=== PATIENT | male | born 1935 | race Hispanic/Latino ===

== ENCOUNTER 2017-03-30 09:30 | Emergency (ER) | payer BC, MEDICARE ==
[2017-03-30 09:38] VITALS: BP 115/67; PULSE 84; RESP 20; TEMP 98.8; O2SAT 98
--- NOTE | 2017-03-30 10:04 | ED PDOC ---
HPI: Back Time Seen by Provider: 03/30/17 09:40 Chief Complaint (Nursing): Male Genitourinary Chief Complaint (Provider): back pain History Per: Patient History/Exam Limitations: no limitations Onset/Duration Of Symptoms: Days (x 21) Additional Complaint(s): Uli Villanueva is an 81 year old male, with a previous medical history of COPD and lung cancer, who presents to the ED with complaints of lower back pain ongoing for 3 weeks after pulling heavy furniture. Patient denies any numbness, tingling or weakness. Patient also reports to developing urinary frequency 2 days ago but denies any fever or abdominal pain. PMD: none provided Past Medical History Reviewed: Historical Data, Nursing Documentation, Vital Signs Vital Signs: Last Vital Signs Temp 98.8 F 03/30/17 09:37 Pulse 84 03/30/17 09:37 Resp 20 03/30/17 09:37 BP 115/67 03/30/17 09:37 Pulse Ox 98 03/30/17 09:37 - Medical History PMH: Anxiety, Bronchitis, COPD, Emphysema, HTN Denies: HIV, Chronic Kidney Disease - Surgical History Surgical History: No Surg Hx - Family History Family History: States: Unknown Family Hx - Home Medications Home Medications: Ambulatory Orders Medication Instructions Recorded Albuterol HFA [Ventolin HFA 90 2 puff IH [id number] #1 puff 07/14/14 mcg/actuation (8 g)] Albuterol/Ipratropium [Duoneb 3 3 ml IH TID #0 neb 07/14/14 mg/0.5 mg (3 ml) UD] Diazepam [Valium] 2 mg PO DAILY PRN #0 tab 07/14/14 Omeprazole [Prilosec] 1 tab PO DAILY #0 ecc 07/14/14 Sulfamethoxazole/Trimethoprim 1 tab PO QOTHERDAY #0 tab 07/14/14 [Bactrim 400-80 mg Tablet] Tamsulosin [Flomax] 1 tab-cap PO DAILY #0 cap 07/14/14 Venlafaxine Hydrochloride 25 mg PO DAILY #0 tab 07/14/14 Ciprofloxacin HCl [Cipro] 500 mg PO BID #20 tab 03/30/17 traMADol [Ultram] 50 mg PO Q8 #10 tab 03/30/17 - Allergies Allergies/Adverse Reactions: Allergies Allergy/AdvReac Type Severity Reaction Status Date / Time No Known Allergies Allergy Verified 07/13/14 04:11 Review of Systems ROS Statement: Except As Marked, All Systems Reviewed And Found Negative Gastrointestinal: Negative for: Abdominal Pain Genitourinary Male: Positive for: Frequency. Negative for: Dysuria, Incontinence Musculoskeletal: Positive for: Back Pain Neurological: Negative for: Weakness, Numbness, Other (tingling) Physical Exam - Reviewed Nursing Documentation Reviewed: Yes Vital Signs Reviewed: Yes - Physical Exam Appears: Positive for: Well, Non-toxic, No Acute Distress Head Exam: Positive for: ATRAUMATIC, NORMAL INSPECTION, NORMOCEPHALIC Skin: Positive for: Normal Color, Warm, Dry Eye Exam: Positive for: Normal appearance ENT: Positive for: Normal ENT Inspection Cardiovascular/Chest: Positive for: Regular Rate, Rhythm Respiratory: Positive for: Decreased Breath Sounds (bilaterally ) Gastrointestinal/Abdominal: Positive for: Bowel Sounds, Soft, Distended ( suprapubic ). Negative for: Tenderness Back: Positive for: Other (left lumbar paraspinal tenderness ). Negative for: L CVA Tenderness, R CVA Tenderness, Vertebral Tenderness Neurologic/Psych: Positive for: Alert, Oriented - Laboratory Results Result Diagrams: 03/30/17 10:16 03/30/17 10:16 - ECG O2 Sat by Pulse Oximetry: 98 (RA) Pulse Ox Interpretation: Normal Medical Decision Making Medical Decision Making: Initial Plan: * labs * urine dipstick * urine culture * x-ray lumbar spine * reevaluation Bladder scan pre-void indicated 258 ml ----- Scribe Attestation: Documented by Paris Snyder acting as a scribe for Quinten Stein MD. Scribe Attestation: All medical record entries made by the Scribe were at my direction and personally dictated by me. I have reviewed the chart and agree that the record accurately reflects my personal performance of the history, physical exam, medical decision making, and the department course for this patient. I have also personally directed, reviewed, and agree with the discharge instructions and disposition. Disposition - Clinical Impression Clinical Impression: Back strain, UTI (urinary tract infection) - Patient ED Disposition Is Patient to be Admitted: No Counseled Patient/Family Regarding: Studies Performed, Diagnosis, Need For Followup, Rx Given - Disposition Referrals: Walter Mcdermott MD [Family Provider] - Disposition: Routine/Home Disposition Time: 12:28 Condition: FAIR Prescriptions: Ciprofloxacin HCl [Cipro] 500 mg PO BID #20 tab traMADol [Ultram] 50 mg PO Q8 #10 tab Instructions: Back Pain (ED), Urinary Tract Infection in Men (ED) Forms: [facility] (American)
[2017-03-30 10:23] LABS: BASO # 0.1 K/uL (0.0-0.2); BASO % 0.8 % (0.0-2.0); EOS # 0.1 K/uL (0.0-0.7); EOS % 1.3 % (0.0-4.0); HEMATOCRIT 45.1 % (35.0-51.0); LYMPH # 0.9 K/uL (1.0-4.3); LYMPH % 13.5 % (20.0-40.0); MEAN CELL VOLUME 96.6 fl (80.0-94.0); MEAN CORPUSCULAR HEMOGLOBIN 32.4 pg (27.0-31.0); MEAN CORPUSCULAR HGB CONC 33.5 g/dL (33.0-37.0); MEAN PLATELET VOLUME 6.6 fl (7.2-11.7); MONO # 0.4 K/uL (0.0-0.8); MONO % 6.6 % (0.0-10.0); NEUT # 5.1 K/uL (1.8-7.0); NEUT % 77.8 % (50.0-75.0); NRBC % 0.1 % (0.0-0.0); RED CELL DISTRIBUTION WIDTH 14.6 % (11.5-14.5); WHITE BLOOD COUNT 6.5 K/uL (4.8-10.8)
[2017-03-30 10:29] LABS: ALB/GLOB RATIO 1.5 (1.0-2.1); ALKALINE PHOSPHATASE 98 U/L (38-126); ALT/SGPT 34 U/L (21-72); AST/SGOT 23 U/L (17-59); BILIRUBIN,TOTAL 0.8 mg/dl (0.2-1.3); BLOOD UREA NITROGEN 15 mg/dl (9-20); CALCIUM 9.5 mg/dL (8.4-10.2); CARBON DIOXIDE 27 mmol/L (22-30); CHLORIDE 102 mmol/L (98-107); GFR AFRICAN-AMERICAN > 60; GLUCOSE,RANDOM 87 mg/dL (75-110); POTASSIUM 4.5 MMOL/L (3.6-5.0); SODIUM 144 mmol/l (132-148); TOTAL PROTEIN 7.5 G/DL (6.3-8.2)
--- NOTE | 2017-03-30 15:02 | RAD ---
PROCEDURE: Radiographs of the Lumbar Spine. HISTORY: trauma r/o fx COMPARISON: No prior. FINDINGS: BONES: Loss of height L4 vertebral body likely chronic. Wedge deformity T12. DISC SPACES: Unremarkable. OTHER FINDINGS: Calcified nonaneurysmal abdominal aorta. IMPRESSION: Fractures of T12 and L4. L4 fractures likely old. Indeterminate age of the T12 fracture. Please note: No preliminary report/ innterpretation of this examination provided by emergency department personnel.
== END 2017-03-30 12:41 | disposition home or self-care (01) ==
LOC: H.ER 09:30
DX: N39.0 Urinary tract infection, site not specified (principal); M54.9 Dorsalgia, unspecified; J44.9 Chronic obstructive pulmonary disease, unspecified; F41.9 Anxiety disorder, unspecified; I10 Essential (primary) hypertension; Z85.118 Personal history of other malignant neoplasm of bronchus and lung

== ENCOUNTER 2017-08-15 10:07 | Inpatient (IN) | payer BC, MEDICARE ==
[2017-08-15 10:07] VITALS: BMI 22.4
[2017-08-15] MEDS ORDERED: Albuterol-Ipratrop 3 mg / 0.5 (3 ml) UD INH STA ×2 (10:29→12:21)
[2017-08-15] MEDS ORDERED: Azithromycin 500 MG in Sodium Chloride 0.9% 250 ML IV STA (10:30)
--- NOTE | 2017-08-15 11:01 | RAD ---
HISTORY: Sepsis Patient COMPARISON: Comparison chest dated 11/05/2015. FINDINGS: Re- demonstrated is in situ right-sided MediPort with tip in the SVC. LUNGS: Note that this examination is somewhat limited due to partial obscuration of the right lung apex by overlying facial soft tissue and mandible artifact. Re- demonstrated is opacification right upper lung field with volume loss. There also appears to be some base mild atelectasis right lung base tenting of the and tenting of the right hemidiaphragm. Mild compensatory hyperinflation left lung PLEURA: No significant pleural effusion identified, no pneumothorax apparent. CARDIOVASCULAR: Apparent mild shift of the mediastinum from right to left OSSEOUS STRUCTURES: No significant abnormalities. VISUALIZED UPPER ABDOMEN: Normal. OTHER FINDINGS: None. IMPRESSION: This examination is somewhat limited due to partial obscuration of the right lung apex by overlying facial soft tissue and mandible artifact. Re- demonstrated is opacification right upper lung field with volume loss. There also appears to be some base mild atelectasis right lung base tenting of the and tenting of the right hemidiaphragm. Mild compensatory hyperinflation left lung
[2017-08-15] MEDS ORDERED: cefTRIAXone (Rocephin) 1 gm Inj ONE (11:05)
[2017-08-15] MEDS ORDERED: Albuterol-Ipratrop 3 mg / 0.5 (3 ml) UD ONE ×2 (11:06→12:24)
--- NOTE | 2017-08-15 11:14 | ED PDOC ---
HPI: SOB/CHF/COPD Time Seen by Provider: 08/15/17 10:28 Chief Complaint (Nursing): Shortness Of Breath Chief Complaint (Provider): SOB History Per: Patient, Family Additional Complaint(s): states pt has been getting progressively short of breath X 4 months, no fever, no CP, no cough, O2 sats in 70s after exertion today. Pt finished course of Cipro and presently on day 5 of Levaquin. Pt has h/o lung CA in 2011 , treated with chemo and radiation, now in remission. Pt reports improvement in sxs after nebulizer treatment via EMS. Past Medical History Reviewed: Nursing Documentation, Vital Signs Vital Signs: Last Vital Signs Temp 98.3 F 08/15/17 10:10 Pulse 138 H 08/15/17 14:43 Resp 34 H 08/15/17 11:30 BP 98/76 L 08/15/17 11:30 Pulse Ox 100 08/15/17 13:40 - Medical History PMH: Anxiety, Bronchitis, COPD, Emphysema, HTN, Malignancy Denies: HIV, Chronic Kidney Disease - Family History Family History: States: Unknown Family Hx - Living Arrangements Living Arrangements: With Family - Social History Ex-Smoker (has not smoked in the last 12 months): Yes Alcohol: None - Home Medications Home Medications: Ambulatory Orders Medication Instructions Recorded Budesonide [Pulmicort Respules] 2 ml IH Q12H 08/15/17 Fluticasone/Salmeterol 250/50 1 puff IH Q12H 08/15/17 [Advair Diskus 250/50] Levalbuterol [Xopenex] 3 ml IH Q8H 08/15/17 Pantoprazole Sodium [Protonix] 40 mg PO DAILY 08/15/17 Sulfamethoxazole/Trimethoprim 1 tab PO MWF 08/15/17 [Bactrim DS Tab] Tamsulosin [Flomax] 0.8 mg PO HS 08/15/17 Tiotropium [Spiriva] 18 mcg IH DAILY 08/15/17 Vitamin B Complex [Super B-50 1 cap PO DAILY 08/15/17 Complex] levoFLOXacin [Levaquin] 500 mg PO DAILY 08/15/17 predniSONE [predniSONE Tab] 10 mg PO BID 08/15/17 - Allergies Allergies/Adverse Reactions: Allergies Allergy/AdvReac Type Severity Reaction Status Date / Time No Known Allergies Allergy Verified 05/11/17 12:09 Review of Systems Constitutional: Negative for: Fever, Chills Cardiovascular: Negative for: Chest Pain, Palpitations Respiratory: Positive for: Cough, Shortness of Breath, SOB with Exertion. Negative for: Sputum Gastrointestinal: Negative for: Nausea, Vomiting, Abdominal Pain, Diarrhea Genitourinary Male: Negative for: Dysuria, Hematuria Musculoskeletal: Negative for: Back Pain Skin: Negative for: Rash, Lesions Neurological: Negative for: Weakness, Numbness, Headache, Dizziness Physical Exam - Reviewed Nursing Documentation Reviewed: Yes Vital Signs Reviewed: Yes - Physical Exam Appears: Positive for: In Acute Distress (Speaking full sentences) Head Exam: Positive for: ATRAUMATIC, NORMAL INSPECTION Skin: Positive for: Normal Color, Warm, Dry Eye Exam: Positive for: Normal appearance, EOMI, PERRL Cardiovascular/Chest: Positive for: Regular Rate, Rhythm Respiratory: Positive for: Accessory Muscle Use, Crackles, Rales, Wheezing, Respiratory Distress Gastrointestinal/Abdominal: Positive for: Normal Exam Extremity: Positive for: Normal ROM Neurologic/Psych: Positive for: Alert, heating engineer II-XII, Oriented. Negative for: Motor/Sensory Deficits - Laboratory Results Result Diagrams: 08/15/17 10:50 08/15/17 10:50 - ECG O2 Sat by Pulse Oximetry: 100 - Critical Care Total Time (In Min): 90 Medical Decision Making Medical Decision Makin yo male with SOB. - labs - EKG - CXR - Duonebs - Solumedrol - Rocephin - Zithromax As per spouse, pt under care of Dr. Lomax and previously Dr. Blunt, requests admission under Dr. Lomax's service. Time: 10:59 Chest X-Ray FINDINGS: Re- demonstrated is in situ right-sided MediPort with tip in the SVC. LUNGS: Note that this examination is somewhat limited due to partial obscuration of the right lung apex by overlying facial soft tissue and mandible artifact. Re- demonstrated is opacification right upper lung field with volume loss. There also appears to be some base mild atelectasis right lung base tenting of the and tenting of the right hemidiaphragm. Mild compensatory hyperinflation left lung PLEURA: No significant pleural effusion identified, no pneumothorax apparent. CARDIOVASCULAR: Apparent mild shift of the mediastinum from right to left OSSEOUS STRUCTURES: No significant abnormalities. VISUALIZED UPPER ABDOMEN: Normal. OTHER FINDINGS: None. IMPRESSION: This examination is somewhat limited due to partial obscuration of the right lung apex by overlying facial soft tissue and mandible artifact. Re- demonstrated is opacification right upper lung field with volume loss. There also appears to be some base mild atelectasis right lung base tenting of the and tenting of the right hemidiaphragm. Mild compensatory hyperinflation left lung 12:55 Repeat EKG secondary to tachycardia and irregular rhythm on monitor. EKG: A fib @ 152, ST depressions inferiorly. Case discussed with Dr. Guadarrama and EKG reviewed, ST depressions, does not meet criteria for Code Heart. BiPAP ordered. 13:40 Pt improving, feels better. 15:10 Pt remains tachycardic, BP 94 systolic, IVF continued, Digoxin 0.125 mg ordered. Disposition - Clinical Impression Clinical Impression: COPD exacerbation, Respiratory distress, New onset a-fib - Patient ED Disposition Is Patient to be Admitted: Yes - Disposition Disposition Time: 12:25 Condition: GUARDED - Pt Status Changed To: Hospital Disposition Of: Inpatient - Admit Certification Admit to Inpatient:: After my assessment, the patient will require hospitalization for at least two midnights. This is because of the severity of symptoms shown, intensity of services needed, and/or the medical risk in this patient being treated as an outpatient. - POA Present On Arrival: None
[2017-08-15 11:16] LABS: BASO % 0.2 % (0.0-2.0); EOS % 0.3 % (0.0-4.0); HEMOGLOBIN 13.5 g/dL (12.0-18.0); LYMPH # 1.3 K/uL (1.0-4.3); LYMPH % 18.4 % (20.0-40.0); MEAN CELL VOLUME 96.9 fl (80.0-94.0); MEAN CORPUSCULAR HGB CONC 33.1 g/dL (33.0-37.0); MEAN PLATELET VOLUME 6.9 fl (7.2-11.7); MONO # 0.5 K/uL (0.0-0.8); MONO % 6.6 % (0.0-10.0); NEUT # 5.4 K/uL (1.8-7.0); NEUT % 74.5 % (50.0-75.0); NRBC % 0.1 % (0.0-0.0); RBC 4.21 Mil/uL (4.40-5.90); RED CELL DISTRIBUTION WIDTH 15.4 % (11.5-14.5); WHITE BLOOD COUNT 7.3 K/uL (4.8-10.8)
[2017-08-15 11:21] LABS: ABG ALLEN TEST YES; ARTERIAL BLOOD GAS HCO3 28.1 mmol/L (21-28); ARTERIAL BLOOD GAS O2 SAT 100.4 % (95-98); ARTERIAL BLOOD GAS PCO2 45 mm/Hg (35-45); ARTERIAL BLOOD GAS PH 7.42 (7.35-7.45); ARTERIAL BLOOD GAS PO2 136 mm/Hg (80-100); ARTERIAL BLOOD GAS TCO2 30.6 mmol/L (22-28)
[2017-08-15 11:24] LABS: INR 1.1 (0.9-1.2); PARTIAL THROMBOPLASTIN TIME 34.7 Seconds (25.6-37.1); PROTHROMBIN TIME 11.8 Seconds (9.8-13.1)
[2017-08-15 11:31] LABS: B-TYPE NATRIURETIC PEPTIDE 2760 pg/ml (0-900)
[2017-08-15 11:35] LABS: ALB/GLOB RATIO 1.1 (1.0-2.1); ALBUMIN 3.4 g/dL (3.5-5.0); ALT/SGPT 29 U/L (21-72); AST/SGOT 48 U/L (17-59); BLOOD UREA NITROGEN 20 mg/dl (9-20); CALCIUM 8.8 mg/dL (8.4-10.2); GFR AFRICAN-AMERICAN > 60; GFR NON-AFRICAN AMERICAN > 60; MAGNESIUM 1.9 MG/DL (1.6-2.3)
[2017-08-15] MEDS ORDERED: Sodium Chloride 0.9% 1,000 ML IV STA ×2 (12:21→13:39)
--- NOTE | 2017-08-15 13:19 | CARD ---
APPROVED REPORT EKG Measurement Heart [id number] <Conclusion> Sinus tachycardia with premature atrial complexes Otherwise normal ECG
[2017-08-15] MEDS ORDERED: Budesonide 0.5 mg/2 ml Inhal Susp UD IH SCH (13:45)
[2017-08-15] MEDS ORDERED: Levalbuterol 0.63 MG/3 ML Inhal Soln UD IH SCH (13:45)
[2017-08-15] MEDS ORDERED: Fluticasone-Salmeterol 250-50mcg Diskus IH SCH (13:45)
[2017-08-15] MEDS ORDERED: Enoxaparin 40 mg Syringe SC STA (13:52)
[2017-08-15] MEDS ORDERED: Azithromycin 500 MG in Sodium Chloride 0.9% 250 ML IVPB SCH (14:00)
[2017-08-15] MEDS ORDERED: Digoxin 500 mcg/2ml (0.5 mg/2ml) Inj IVP STA (15:14)
--- NOTE | 2017-08-15 15:46 | CP.PCM.HP ---
History of Present Illness - History of Present Illness History of Present Illness: 82 yo male with history of COPD and Lung Cancer brought by roommate because of SOB associated with wheezing and loss of appetite since 2 weeks ago. Recently diagnosed with flu and URI 3 weeks ago and was put on Cipro and Levaquin. According to his roommate his condition deteriorated after that. Present on Admission - Present on Admission Any Indicators Present on Admission: No History of DVT/PE: No History of Uncontrolled Diabetes: No Urinary Catheter: No Decubitus Ulcer Present: No Review of Systems - Review of Systems All systems: reviewed and no additional remarkable complaints except (aside from those mentioned above, 12 point system review were negative by me) Past Patient History - Infectious Disease Hx of Infectious Diseases: None - Tetanus Immunizations Tetanus Immunization: Unknown - Past Medical History & Family History Past Medical History?: Yes - Past Social History Smoking Status: Former Smoker Alcohol: None Drugs: Denies Home Situation {Lives}: Roommate (0) - CARDIAC Hx Hypertension: Yes - PULMONARY Hx Bronchitis: Yes Hx Chronic Obstructive Pulmonary Disease (COPD): Yes Hx Emphysema: Yes - NEUROLOGICAL Hx Neurological Disorder: No - HEENT Hx HEENT Problems: No - RENAL Hx Chronic Kidney Disease: No - ENDOCRINE/METABOLIC Hx Endocrine Disorders: No - HEMATOLOGICAL/ONCOLOGICAL Hx Blood Disorders: No Hx Human Immunodeficiency Virus (HIV): No - INTEGUMENTARY Hx Dermatological Problems: No - MUSCULOSKELETAL/RHEUMATOLOGICAL Hx Musculoskeletal Disorders: No Hx Falls: No - GASTROINTESTINAL Hx Gastrointestinal Disorders: No - GENITOURINARY/GYNECOLOGICAL Hx Genitourinary Disorders: No - PSYCHIATRIC Hx Anxiety: Yes - SURGICAL HISTORY Hx Surgeries: No - ANESTHESIA Hx Anesthesia: No Meds Allergies/Adverse Reactions: Allergies Allergy/AdvReac Type Severity Reaction Status Date / Time No Known Allergies Allergy Verified 05/11/17 12:09 Physical Exam - Constitutional Appears: No Acute Distress, Chronically Ill - Head Exam Head Exam: ATRAUMATIC - Eye Exam Eye Exam: absent: Scleral icterus - ENT Exam ENT Exam: Mucous Membranes Moist - Neck Exam Neck exam: Negative for: Meningismus - Respiratory Exam Respiratory Exam: Rhonchi, Wheezes - Cardiovascular Exam Cardiovascular Exam: Tachycardia, Irregular Rhythm - GI/Abdominal Exam GI & Abdominal Exam: Soft. absent: Tenderness - Rectal Exam Rectal Exam: Deferred - Extremities Exam Extremities exam: Negative for: pedal edema - Back Exam Back exam: absent: tenderness - Neurological Exam Neurological exam: Alert, Oriented x3 - Psychiatric Exam Psychiatric exam: Normal Affect - Skin Skin Exam: Dry, Intact Results - Vital Signs Recent Vital Signs: Last Vital Signs Temp 98.3 F 08/15/17 10:10 Pulse 138 H 08/15/17 14:43 Resp 34 H 08/15/17 11:30 BP 98/76 L 08/15/17 11:30 Pulse Ox 100 08/15/17 13:40 - Labs Result Diagrams: 08/15/17 10:50 08/15/17 10:50 Labs: Laboratory Results - last 24 hr 08/15/17 08/15/17 08/15/17 10:50 10:50 10:50 WBC 7.3 RBC 4.21 L Hgb 13.5 Hct 40.8 MCV 96.9 H MCH 32.0 H MCHC 33.1 RDW 15.4 H Plt Count 202 MPV 6.9 L Neut % (Auto) 74.5 Lymph % (Auto) 18.4 L Burnet % (Auto) 6.6 Eos % (Auto) 0.3 Baso % (Auto) 0.2 Neut # (Auto) 5.4 Lymph # (Auto) 1.3 Burnet # (Auto) 0.5 Eos # (Auto) 0.0 Baso # (Auto) 0.0 PT 11.8 INR 1.1 APTT 34.7 pCO2 pO2 HCO3 ABG pH ABG Total CO2 ABG O2 Saturation ABG Base Excess Fei Test ABG Potassium A-a O2 Difference Glucose Lactate FiO2 Sodium 140 Potassium 3.9 Chloride 100 Carbon Dioxide 31 H Anion Gap 13 BUN 20 Creatinine 0.7 L Est GFR ( Amer) > 60 Est GFR (Non-Af Amer) > 60 Random Glucose 84 Calcium 8.8 Phosphorus 2.8 Magnesium 1.9 Total Bilirubin 0.7 AST 48 ALT 29 Alkaline Phosphatase 83 Troponin I 0.0230 NT-Pro-B Natriuret Pep 2760 H Total Protein 6.4 Albumin 3.4 L D Globulin 3.0 Albumin/Globulin Ratio 1.1 Arterial Blood Potassium Influenza Typ A,B (EIA) 08/15/17 08/15/17 11:16 13:10 WBC RBC Hgb Hct MCV MCH MCHC RDW Plt Count MPV Neut % (Auto) Lymph % (Auto) Burnet % (Auto) Eos % (Auto) Baso % (Auto) Neut # (Auto) Lymph # (Auto) Burnet # (Auto) Eos # (Auto) Baso # (Auto) PT INR APTT pCO2 45 pO2 136 H HCO3 28.1 H ABG pH 7.42 ABG Total CO2 30.6 H ABG O2 Saturation 100.4 H ABG Base Excess 4.0 H Fei Test Yes ABG Potassium 3.3 L A-a O2 Difference 93.0 Glucose 96 Lactate 1.2 FiO2 40.0 Sodium 137.0 Potassium Chloride 101.0 Carbon Dioxide Anion Gap BUN Creatinine Est GFR ( Amer) Est GFR (Non-Af Amer) Random Glucose Calcium Phosphorus Magnesium Total Bilirubin AST ALT Alkaline Phosphatase Troponin I NT-Pro-B Natriuret Pep Total Protein Albumin Globulin Albumin/Globulin Ratio Arterial Blood Potassium 3.3 L Influenza Typ A,B (EIA) Negative for flu a/b Assessment & Plan - Assessment and Plan (Free Text) Assessment: 82 yo male with history of COPD and Lung Cancer brought by roommate because of SOB associated with wheezing and loss of appetite since 2 weeks ago. Recently diagnosed with flu and URI 3 weeks ago and was put on Cipro and Levaquin. According to his roommate his condition deteriorated after that. 1. COPD Exacerbation continue SoluMedrol 60mg IV q 8hrs Duoneb via nebulizer q hrs prn for wheezing Spiriva 18mcg inhalation Advair 2 puffs q 12hrs continue Rocephin and Azithromycin pulmonology consult with Dr Lomax 2. Lung Cancer on remission
[2017-08-15] MEDS ORDERED: Albuterol-Ipratrop 3 mg / 0.5 (3 ml) UD INH PRN (17:39)
[2017-08-15] MEDS ORDERED: methylPREDNISolone 60 MG in Sodium Chloride 0.9% 50 ML IV SCH (17:45)
[2017-08-15] MEDS: Ipratropium 0.02% Inhal Soln (0.5 mg/2.5 ml) UD IH SCH (19:15)
[2017-08-15] MEDS: Levalbuterol 0.63 MG/3 ML Inhal Soln UD IH SCH (19:16)
--- NOTE | 2017-08-16 05:03 | CON ---
CRITICAL CARE CONSULTATION DATE: 08/15/2017 The patient in ICU bed, 425. Time spent 45 minutes. The patient is seen and evaluated at the bedside. Past medical, surgical and social history reviewed. HISTORY OF PRESENT ILLNESS: An 82-year-old male with chronic obstructive pulmonary disease/emphysema, lung cancer, status post chemo and radiation treatment, has been in his usual state of health until about 3 weeks ago when the patient developed flu and noted to be short of breath. The patient was seen by PMD/manager adult, treated with Cipro and steroid. The patient improved and at the end of the treatment, the patient again became more short of breath, was given levofloxacin, increased the dose of steroids, but became refractory to treatment, getting more short of breath, and came to emergency room. In ER, the patient's vital signs showed temperature 98.3, heart rate of 138, respiratory rate 34, blood pressure 98/76, and pulse oximetry 100%. The patient subsequently admitted to the floor. MEDICATIONS: His medications at home include Advair 250/50 one puff twice daily, Pulmicort Respules 2 mL q. 12 hours, levalbuterol 3 mL q. 8 hours, Protonix 40 daily, Bactrim DS 1 tablet three times a week, Flomax 0.8 mg at bedtime, ipratropium bromide 18 mcg daily, vitamin B complex, and prednisone 10 mg. ALLERGIES: NONE DOCUMENTED. FAMILY HISTORY: Noncontributory. SOCIAL HISTORY: Reformed smoker. PHYSICAL EXAMINATION: GENERAL: Elderly male oriented to name, place, and time, on BiPAP. No distress noted. VITAL SIGNS: Temperature 97.1, heart rate of 93, blood pressure of 111/64, and mean arterial pressure 79. Intake and output to be documented. Weight 125 pounds. HEAD, EYES, EARS, NOSE AND THROAT: Pupils reactive. Conjunctivae pale. Sclerae white. NECK: Supple, [id number] hunchback. CHEST: Bilateral breath sounds diminished in intensity. Expiration prolonged. HEART: Rhythm regular. S1 and S2 normal intensity. No S3, S4, or gallop. No audible murmur. ABDOMEN: Bowel sounds are present. EXTREMITIES: No edema. DP palpable. NEUROLOGIC: Nonfocal. LABORATORY DATA: EKG shows atrial fibrillation with nonspecific ST-T changes. Chest x-ray, hyperinflated left lung, hazy opacity involving right upper lobe with trachea shifted to right. IMPRESSION AND PLAN: An 82-year-old male reformed smoker with chronic obstructive pulmonary disease, emphysema with history of carcinoma of right lung, status post chemotherapy and radiation treatment, admitted with chronic obstructive pulmonary disease exacerbation, post-influenza bronchitis, treated with Cipro and levofloxacin, currently on Rocephin and Zithromax. Continue short course systemic steroid, bronchodilator q. 6 hours p.r.n., continue bilevel positive airway pressure. No electrolyte abnormalities noted. ProBNP 2716. Continue deep venous thrombosis and gastrointestinal prophylaxis. History of prostate hypertrophy, on Flomax 0.8 mg daily. Musa Whitney MD
[2017-08-16 05:43] LABS: BLOOD UREA NITROGEN 25 mg/dl (9-20); CALCIUM 8.3 mg/dL (8.4-10.2); GFR AFRICAN-AMERICAN > 60; GFR NON-AFRICAN AMERICAN > 60
[2017-08-16 05:54] LABS: HEMOGLOBIN 12.9 g/dL (12.0-18.0); LYMPH # 0.1 K/uL (1.0-4.3); LYMPH % 2.1 % (20.0-40.0); MEAN CELL VOLUME 96.4 fl (80.0-94.0); MEAN CORPUSCULAR HEMOGLOBIN 31.9 pg (27.0-31.0); MEAN CORPUSCULAR HGB CONC 33.1 g/dL (33.0-37.0); MONO # 0.2 K/uL (0.0-0.8); MONO % 2.3 % (0.0-10.0); NEUT # 6.6 K/uL (1.8-7.0); NEUT % 95.6 % (50.0-75.0); PLATELET COUNT 212 K/uL (130-400); RBC 4.04 Mil/uL (4.40-5.90); RED CELL DISTRIBUTION WIDTH 15.1 % (11.5-14.5); WHITE BLOOD COUNT 6.9 K/uL (4.8-10.8)
[2017-08-16] MEDS: Enoxaparin 40 mg Syringe SC SCH (08:29)
[2017-08-16] MEDS: Pantoprazole 40 mg EC Tab PO SCH (08:32)
[2017-08-16] MEDS: Azithromycin 500 MG in Sodium Chloride 0.9% 250 ML IVPB SCH (08:33)
[2017-08-16] MEDS: Multivitamin With Minerals Tab PO SCH (08:34)
[2017-08-16] MEDS ORDERED: MethylPREDNISolone 40 mg Vial IVP SCH (08:45)
--- NOTE | 2017-08-16 08:47 | CP.PCM.CON ---
History of Present Illness - History of Present Illness History of Present Illness: This 82-year-old white male who has history of COPD presented to the emergency department with approximately 3-4 weeks of worsening shortness of breath. He has been treated for exacerbation of chronic bronchitis with quinolones in the past and has been given oral steroids as well as his usual inhalation medications. Symptomatology has waxed and waned but has recently become more severe. He was unaware fever but did have chills. He denied chest pain. There was no hemoptysis. His cough was productive of a large amount of mostly mucoid sputum. He continues to use levalbuterol and budesonide via nebulizer at home but also carries a rescue inhaler she uses when needed. He does have O2 via nasal cannula for home use as well. When seen in the emergency department his chest x-ray showed no new infiltrates but has significant changes in the right hemithorax due to a prior diagnosis of carcinoma which was treated with radiation therapy as well as chemotherapy. Past medical history: Stage III non-small cell lung cancer of the right lung, pneumonia, chronic obstructive pulmonary disease, hypertension, coronary artery disease, hepatitis , urinary tract infections, BPH with lower urinary tract symptoms, hepatitis, cataracts. There is no history of diabetes, peptic ulcer disease, renal disease or bleeding disorder. No history of seizure disorder. Allergies: No known drug allergies. Social history: Former heavy cigarette smoker discontinued his habit 10 years ago. He smoked for more than 50 years. Heavy alcoholic intake in the past, discontinued in 1977. Denies illicit drug use. Review of Systems - Review of Systems All systems: reviewed and no additional remarkable complaints except - Constitutional Constitutional: Chills, Fatigue, Weakness - EENT Eyes: Blurred Vision Ears: Decreased Hearing Nose/Mouth/Throat: Dry Mouth, Hoarsness - Cardiovascular Cardiovascular: Rapid Heart Rate - Respiratory Respiratory: Cough, Dyspnea, Wheezing, Excessive Mucous Production - Musculoskeletal Musculoskeletal: Back Pain - Psychiatric Psychiatric: Anxiety, Change in Appetite - Hematologic/Lymphatic Hematologic: Easy Bruising Past Patient History - Infectious Disease Hx of Infectious Diseases: None - Tetanus Immunizations Tetanus Immunization: Unknown - Past Medical History & Family History Past Medical History?: Yes - Past Social History Smoking Status: Former Smoker (Smoked heavily until about 10 years ago) Chewing Tobacco Use: No Cigar Use: No Alcohol: None (Heavy alcohol intake until 1977) Drugs: Denies Home Situation {Lives}: With Family - CARDIAC Hx Hypertension: Yes - PULMONARY Hx Bronchitis: Yes Hx Chronic Obstructive Pulmonary Disease (COPD): Yes Hx Emphysema: Yes Hx Pneumonia: Yes - NEUROLOGICAL Hx Neurological Disorder: No - HEENT Hx Cataracts: Yes Hx Deafness: Yes - RENAL Hx Chronic Kidney Disease: No - ENDOCRINE/METABOLIC Hx Endocrine Disorders: No - HEMATOLOGICAL/ONCOLOGICAL Hx Cancer: Yes (Right lung) Hx Hepatitis B: Yes Hx Human Immunodeficiency Virus (HIV): No - INTEGUMENTARY Hx Dermatological Problems: No - MUSCULOSKELETAL/RHEUMATOLOGICAL Hx Back Pain: Yes Hx Falls: Yes - GASTROINTESTINAL Hx Gastrointestinal Disorders: No - GENITOURINARY/GYNECOLOGICAL Hx Prostate Problems: Yes Hx Urinary Tract Infection: Yes - PSYCHIATRIC Hx Anxiety: Yes Hx Substance Use: No - SURGICAL HISTORY Hx Vascular Access Device: Yes - ANESTHESIA Hx Anesthesia: No Meds Allergies/Adverse Reactions: Allergies Allergy/AdvReac Type Severity Reaction Status Date / Time No Known Allergies Allergy Verified 05/11/17 12:09 - Medications Medications: Current Medications Albuterol/Ipratropium (Duoneb 3 Mg/0.5 Mg (3 Ml) Ud) 3 ml INH RQ4 PRN PRN Reason: Wheezing Amlodipine Besylate (Norvasc) 5 mg PO DAILY [facility] Diazepam (Valium) 1 mg PO BID PRN PRN Reason: Anxiety Last Admin: 08/15/17 23:16 Dose: 1 mg Docusate Sodium (Colace) 100 mg PO BID [facility] Enoxaparin Sodium (Lovenox) 40 mg SC DAILY [facility] PRN Reason: Protocol Last Admin: 08/16/17 08:29 Dose: 40 mg Azithromycin 500 mg/ Sodium (Chloride) 250 mls @ 125 mls/hr IVPB DAILY [facility] PRN Reason: Protocol Last Admin: 08/16/17 08:33 Dose: 125 mls/hr Ceftriaxone Sodium 1 gm/ (Sodium Chloride) 100 mls @ 100 mls/hr IVPB DAILY [facility] Last Admin: 08/15/17 17:09 Dose: Not Given Methylprednisolone 30 mg/ (Sodium Chloride) 50 mls @ 100 mls/hr IV Q8 [facility] Ipratropium [place] (Atrovent) 0.5 mg IH RQID [facility] Last Admin: 08/15/17 19:15 Dose: 0.5 mg Levalbuterol HCl (Xopenex) 0.63 mg IH RQID [facility] Last Admin: 08/15/17 19:16 Dose: 0.63 mg Methylprednisolone (Solu-Medrol) 60 mg IV Q8 [facility] Stop: 08/16/17 09:00 Last Admin: 08/16/17 08:34 Dose: 60 mg Methylprednisolone (Solu-Medrol) 30 mg IVP Q8H [facility] Multivitamins/Minerals (Therapeutic-M Tab) 1 tab PO DAILY [facility] Last Admin: 08/16/17 08:34 Dose: 1 tab Pantoprazole Sodium (Protonix Ec Tab) 40 mg PO DAILY [facility] Last Admin: 08/16/17 08:32 Dose: 40 mg Fluticasone/Salmeterol (Advair Diskus 250/50) 1 puff IH Q12H [facility] Last Admin: 08/15/17 17:07 Dose: 1 puff Tamsulosin HCl (Flomax) 0.8 mg PO HS [facility] Last Admin: 08/15/17 22:18 Dose: 0.8 mg Physical Exam - Additional Findings Additional findings: Thin, chronically ill-appearing male who is very hard of hearing. Voice is course, but this is chronic. Scattered ecchymosis over upper extremities. Pharynx is pink and mucous membranes are dry. No exudate. Nares are patent bilaterally. No bleeding or exudate. Conjunctivae are pink and there is no scleral icterus. Neck is supple and trachea is midline. No visible neck vein distention. No carotid bruit. Asymmetric thorax with decreased expiratory excursion on the right. Dullness to percussion noted on the right as well. Bronchial breath sounds are noted over the right mid and upper hemithorax. Coarse rales heard in the right upper lobe. Scattered expiratory wheezes are heard bilaterally. Breath sounds are significantly diminished bilaterally. A few sonorous rhonchi are heard and dependent zones of both lungs. No rub. Heart sounds are distant. Rhythm is regular, tachycardic. No murmur. Abdomen is soft and nontender with normal bowel sounds. No CVA tenderness. No dependent edema of the ankles or feet. No calf tenderness. Peripheral pulses are markedly diminished bilaterally. No cyanosis. No palpable venous cords. No Homans sign. Results - Vital Signs Recent Vital Signs: Last Vital Signs Temp 98.9 F 08/16/17 08:30 Pulse 84 08/16/17 08:30 Resp 33 H 08/16/17 08:30 BP 142/79 08/16/17 08:30 Pulse Ox 99 08/16/17 08:30 - Labs Result Diagrams: 08/16/17 04:50 08/16/17 04:50 Labs: Laboratory Results - last 24 hr 08/15/17 08/15/17 08/15/17 10:50 10:50 10:50 WBC 7.3 RBC 4.21 L Hgb 13.5 Hct 40.8 MCV 96.9 H MCH 32.0 H MCHC 33.1 RDW 15.4 H Plt Count 202 MPV 6.9 L Neut % (Auto) 74.5 Lymph % (Auto) 18.4 L [place] % (Auto) 6.6 Eos % (Auto) 0.3 Baso % (Auto) 0.2 Neut # (Auto) 5.4 Lymph # (Auto) 1.3 [place] # (Auto) 0.5 Eos # (Auto) 0.0 Baso # (Auto) 0.0 PT 11.8 INR 1.1 APTT 34.7 pCO2 pO2 HCO3 ABG pH ABG Total CO2 ABG O2 Saturation ABG Base Excess Fei Test ABG Potassium A-a O2 Difference Glucose Lactate FiO2 Sodium 140 Potassium 3.9 Chloride 100 Carbon Dioxide 31 H Anion Gap 13 BUN 20 Creatinine 0.7 L Est GFR ( Amer) > 60 Est GFR (Non-Af Amer) > 60 Random Glucose 84 Calcium 8.8 Phosphorus 2.8 Magnesium 1.9 Total Bilirubin 0.7 AST 48 ALT 29 Alkaline Phosphatase 83 Troponin I 0.0230 NT-Pro-B Natriuret Pep 2760 H Total Protein 6.4 Albumin 3.4 L D Globulin 3.0 Albumin/Globulin Ratio 1.1 Arterial Blood Potassium Influenza Typ A,B (EIA) 08/15/17 08/15/17 08/16/17 11:16 13:10 04:50 WBC 6.9 RBC 4.04 L Hgb 12.9 Hct 38.9 MCV 96.4 H MCH 31.9 H MCHC 33.1 RDW 15.1 H Plt Count 212 MPV 7.0 L Neut % (Auto) 95.6 H Lymph % (Auto) 2.1 L [place] % (Auto) 2.3 Eos % (Auto) 0.0 Baso % (Auto) 0.0 Neut # (Auto) 6.6 Lymph # (Auto) 0.1 L [place] # (Auto) 0.2 Eos # (Auto) 0.0 Baso # (Auto) 0.0 PT INR APTT pCO2 45 pO2 136 H HCO3 28.1 H ABG pH 7.42 ABG Total CO2 30.6 H ABG O2 Saturation 100.4 H ABG Base Excess 4.0 H Fei Test Yes ABG Potassium 3.3 L A-a O2 Difference 93.0 Glucose 96 Lactate 1.2 FiO2 40.0 Sodium 137.0 Potassium Chloride 101.0 Carbon Dioxide Anion Gap BUN Creatinine Est GFR ( Amer) Est GFR (Non-Af Amer) Random Glucose Calcium Phosphorus Magnesium Total Bilirubin AST ALT Alkaline Phosphatase Troponin I NT-Pro-B Natriuret Pep Total Protein Albumin Globulin Albumin/Globulin Ratio Arterial Blood Potassium 3.3 L Influenza Typ A,B (EIA) Negative for flu a/b 08/16/17 04:50 WBC RBC Hgb Hct MCV MCH MCHC RDW Plt Count MPV Neut % (Auto) Lymph % (Auto) [place] % (Auto) Eos % (Auto) Baso % (Auto) Neut # (Auto) Lymph # (Auto) [place] # (Auto) Eos # (Auto) Baso # (Auto) PT INR APTT pCO2 pO2 HCO3 ABG pH ABG Total CO2 ABG O2 Saturation ABG Base Excess Fei Test ABG Potassium A-a O2 Difference Glucose Lactate FiO2 Sodium 143 Potassium 4.3 Chloride 103 Carbon Dioxide 31 H Anion Gap 13 BUN 25 H Creatinine 0.8 Est GFR ( Amer) > 60 Est GFR (Non-Af Amer) > 60 Random Glucose 145 H Calcium 8.3 L Phosphorus Magnesium Total Bilirubin AST ALT Alkaline Phosphatase Troponin I NT-Pro-B Natriuret Pep Total Protein Albumin Globulin Albumin/Globulin Ratio Arterial Blood Potassium Influenza Typ A,B (EIA) Assessment & Plan (1) Atrial fibrillation, transient Status: Resolved Priority: High (2) COPD exacerbation Status: Acute Priority: High (3) Lung cancer Status: Chronic Priority: High (4) Pulmonary fibrosis Status: Chronic Priority: High - Assessment and Plan (Free Text) Assessment: Agree with current medical therapy. Patient has improved dramatically since presentation to the emergency department. Will reduce steroid therapy significantly to past history of steroid-induced hallucinations. Continue empiric antibiotic therapy. Continue aerosol therapy using levalbuterol and ipratropium. NPPV using BiPAP placed on standby for now. Can be transferred out of ICU to telemetry. Out of bed to chair with assistance. - Date & Time Date: 08/16/17 Time: 09:04
[2017-08-16] MEDS: Levalbuterol 0.63 MG/3 ML Inhal Soln UD IH SCH ×4 (08:50→19:29)
[2017-08-16] MEDS: MethylPREDNISolone 40 mg Vial IVP SCH ×2 (08:50→18:48)
[2017-08-16] MEDS: Ipratropium 0.02% Inhal Soln (0.5 mg/2.5 ml) UD IH SCH ×4 (08:50→19:29)
[2017-08-16] MEDS ORDERED: methylPREDNISolone 30 MG in Sodium Chloride 0.9% 50 ML IV SCH (09:00)
[2017-08-16] MEDS ORDERED: Tiotropium 18 mcg Cap For Inhalation IH SCH (09:00)
[2017-08-16] MEDS ORDERED: cefTRIAXone 1,000 MG in PED IV SYRINGE 1 SYR IVPB SCH (09:00)
[2017-08-16] MEDS ORDERED: Enoxaparin 40 mg Syringe SC SCH (09:00)
--- NOTE | 2017-08-16 09:55 | CARD ---
APPROVED REPORT EKG Measurement Heart [id number] [id number] <Conclusion> Normal sinus rhythm with sinus arrhythmia artefact present-recommend repeat
--- NOTE | 2017-08-16 10:24 | CARD ---
APPROVED REPORT EKG Measurement Heart [id number] <Conclusion> Atrial fibrillation with rapid ventricular response Possible posterior infarct, age undetermined Marked ST abnormality, possible inferior subendocardial injury Abnormal ECG
[2017-08-16 11:37] LABS: ANISOCYTOSIS SLIGHT; MONOCYTE 3 % (0-10); NEUTROPHIL 97 % (42-75); PLATELET ESTIMATE NORMAL (NORMAL); TOTAL CELLS COUNTED 100
[2017-08-16 11:39] LABS: OVALOCYTES SLIGHT; SCHISTOCYTES SLIGHT
--- NOTE | 2017-08-16 11:57 | CP.PCM.CON ---
History of Present Illness - History of Present Illness History of Present Illness: 82 y/o male with history of COPD and Lung Cancer brought by roommate because of SOB associated with wheezing and loss of appetite since 2 weeks ago. Recently diagnosed with flu and URI 3 weeks ago and was put on Cipro and Levaquin. According to his roommate his condition deteriorated after that. Feels well this AM Past medical history: Stage III non-small cell lung cancer of the right lung, pneumonia, chronic obstructive pulmonary disease, hypertension, coronary artery disease, hepatitis, Troponin: neg EKG: NSR HR: 80 BPM BP: 124/76 Past Patient History - Infectious Disease Hx of Infectious Diseases: None - Tetanus Immunizations Tetanus Immunization: Unknown - Past Medical History & Family History Past Medical History?: Yes - Past Social History Smoking Status: Former Smoker (Smoked heavily until about 10 years ago) Chewing Tobacco Use: No Cigar Use: No Alcohol: None (Heavy alcohol intake until 1977) Drugs: Denies Home Situation {Lives}: With Family - CARDIAC Hx Hypertension: Yes - PULMONARY Hx Bronchitis: Yes Hx Chronic Obstructive Pulmonary Disease (COPD): Yes Hx Emphysema: Yes Hx Pneumonia: Yes - NEUROLOGICAL Hx Neurological Disorder: No - HEENT Hx Cataracts: Yes Hx Deafness: Yes - RENAL Hx Chronic Kidney Disease: No - ENDOCRINE/METABOLIC Hx Endocrine Disorders: No - HEMATOLOGICAL/ONCOLOGICAL Hx Cancer: Yes (Right lung) Hx Hepatitis B: Yes Hx Human Immunodeficiency Virus (HIV): No - INTEGUMENTARY Hx Dermatological Problems: No - MUSCULOSKELETAL/RHEUMATOLOGICAL Hx Back Pain: Yes Hx Falls: Yes - GASTROINTESTINAL Hx Gastrointestinal Disorders: No - GENITOURINARY/GYNECOLOGICAL Hx Prostate Problems: Yes Hx Urinary Tract Infection: Yes - PSYCHIATRIC Hx Anxiety: Yes Hx Substance Use: No - SURGICAL HISTORY Hx Vascular Access Device: Yes - ANESTHESIA Hx Anesthesia: No Meds Allergies/Adverse Reactions: Allergies Allergy/AdvReac Type Severity Reaction Status Date / Time No Known Allergies Allergy Verified 05/11/17 12:09 - Medications Medications: Current Medications Albuterol/Ipratropium (Duoneb 3 Mg/0.5 Mg (3 Ml) Ud) 3 ml INH RQ4 PRN PRN Reason: Wheezing Amlodipine Besylate (Norvasc) 5 mg PO DAILY [facility] Diazepam (Valium) 1 mg PO BID PRN PRN Reason: Anxiety Last Admin: 08/15/17 23:16 Dose: 1 mg Docusate Sodium (Colace) 100 mg PO BID [facility] Last Admin: 08/16/17 10:18 Dose: Not Given Enoxaparin Sodium (Lovenox) 40 mg SC DAILY [facility] PRN Reason: Protocol Last Admin: 08/16/17 08:29 Dose: 40 mg Azithromycin 500 mg/ Sodium (Chloride) 250 mls @ 125 mls/hr IVPB DAILY [facility] PRN Reason: Protocol Last Admin: 08/16/17 08:33 Dose: 125 mls/hr Ceftriaxone Sodium 1 gm/ (Sodium Chloride) 100 mls @ 100 mls/hr IVPB DAILY [facility] Last Admin: 08/16/17 10:15 Dose: 100 mls/hr Ipratropium [place] (Atrovent) 0.5 mg IH RQID [facility] Last Admin: 08/16/17 11:44 Dose: 0.5 mg Levalbuterol HCl (Xopenex) 0.63 mg IH RQID [facility] Last Admin: 08/16/17 11:44 Dose: 0.63 mg Methylprednisolone (Solu-Medrol) 30 mg IVP Q8H [facility] Last Admin: 08/16/17 08:50 Dose: Not Given Multivitamins/Minerals (Therapeutic-M Tab) 1 tab PO DAILY [facility] Last Admin: 08/16/17 08:34 Dose: 1 tab Pantoprazole Sodium (Protonix Ec Tab) 40 mg PO DAILY [facility] Last Admin: 08/16/17 08:32 Dose: 40 mg Fluticasone/Salmeterol (Advair Diskus 250/50) 1 puff IH Q12H [facility] Last Admin: 08/15/17 17:07 Dose: 1 puff Tamsulosin HCl (Flomax) 0.8 mg PO HS [facility] Last Admin: 08/15/17 22:18 Dose: 0.8 mg Results - Vital Signs Recent Vital Signs: Last Vital Signs Temp 98.9 F 08/16/17 08:30 Pulse 86 08/16/17 10:00 Resp 31 H 08/16/17 10:00 BP 117/71 08/16/17 10:00 Pulse Ox 99 08/16/17 10:00 - Labs Result Diagrams: 08/16/17 04:50 08/16/17 04:50 Labs: Laboratory Results - last 24 hr 08/15/17 08/16/17 08/16/17 13:10 04:50 04:50 WBC 6.9 RBC 4.04 L Hgb 12.9 Hct 38.9 MCV 96.4 H MCH 31.9 H MCHC 33.1 RDW 15.1 H Plt Count 212 MPV 7.0 L Neut % (Auto) 95.6 H Lymph % (Auto) 2.1 L [place] % (Auto) 2.3 Eos % (Auto) 0.0 Baso % (Auto) 0.0 Neut # (Auto) 6.6 Lymph # (Auto) 0.1 L [place] # (Auto) 0.2 Eos # (Auto) 0.0 Baso # (Auto) 0.0 Neutrophils % (Manual) 97 H Monocytes % (Manual) 3 Platelet Estimate Normal Anisocytosis (manual) Slight Macrocytosis (manual) Slight Ovalocytes Slight Schistocytes Slight Sodium 143 Potassium 4.3 Chloride 103 Carbon Dioxide 31 H Anion Gap 13 BUN 25 H Creatinine 0.8 Est GFR ( Amer) > 60 Est GFR (Non-Af Amer) > 60 Random Glucose 145 H Calcium 8.3 L Influenza Typ A,B (EIA) Negative for flu a/b
[2017-08-16 12:32] LABS: LYMPHOCYTE 0 % (20-50)
[2017-08-16 14:11] LABS: ABG ALLEN TEST YES; ARTERIAL BLOOD GAS HCO3 29.1 mmol/L (21-28); ARTERIAL BLOOD GAS HEMOGLOBIN 12.7 g/dL (11.7-17.4); ARTERIAL BLOOD GAS O2 CAPACITY 17.4 mL/dL (16-24); ARTERIAL BLOOD GAS O2 CONTENT 16.8 ML/dL (15-23); ARTERIAL BLOOD GAS O2 SAT 96.8 % (95-98); ARTERIAL BLOOD GAS PCO2 49 mm/Hg (35-45); ARTERIAL BLOOD GAS PH 7.41 (7.35-7.45); ARTERIAL BLOOD GAS PO2 74 mm/Hg (80-100); ARTERIAL BLOOD GAS TCO2 32.6 mmol/L (22-28)
[2017-08-16] MEDS ORDERED: Sodium Chloride 3% for Inhalation 4 ML VIAL.NEB IH PRN (18:57)
--- NOTE | 2017-08-16 21:00 | CP.PCM.PN ---
Subjective - Date & Time of Evaluation Date of Evaluation: 08/16/17 Time of Evaluation: 09:30 - Subjective Subjective: Patient was seen and examined bedside. Chronically ill male, lying in bed in NAD . Feeling a little better. Still with dyspnea at rest , coughing spells and whitish sputum production. With wheezing on auscultation mostly on right hemithorax and left hemithorax rhonchi off Bipap at present and saturating 96-98 % on 2 L O2 via [place] Objective - Vital Signs/Intake and Output Vital Signs (last 24 hours): Temp Pulse Resp BP Pulse Ox 97.4 F L 99 H 20 145/82 96 08/16/17 20:18 08/16/17 20:18 08/16/17 20:18 08/16/17 20:18 08/16/17 20:18 Intake and Output: 08/16/17 08/17/17 18:59 06:59 Intake Total 900 Output Total 400 Balance 500 - Medications Medications: Current Medications Albuterol/Ipratropium (Duoneb 3 Mg/0.5 Mg (3 Ml) Ud) 3 ml INH RQ4 PRN PRN Reason: Wheezing Amlodipine Besylate (Norvasc) 5 mg PO DAILY [facility] Diazepam (Valium) 1 mg PO BID PRN PRN Reason: Anxiety Last Admin: 08/16/17 18:37 Dose: 1 mg Docusate Sodium (Colace) 100 mg PO BID [facility] Last Admin: 08/16/17 18:40 Dose: 100 mg Enoxaparin Sodium (Lovenox) 40 mg SC DAILY [facility] PRN Reason: Protocol Last Admin: 08/16/17 08:29 Dose: 40 mg Azithromycin 500 mg/ Sodium (Chloride) 250 mls @ 125 mls/hr IVPB DAILY [facility] PRN Reason: Protocol Last Admin: 08/16/17 08:33 Dose: 125 mls/hr Ceftriaxone Sodium 1 gm/ (Sodium Chloride) 100 mls @ 100 mls/hr IVPB DAILY [facility] Last Admin: 08/16/17 10:15 Dose: 100 mls/hr Ipratropium [place] (Atrovent) 0.5 mg IH RQID [facility] Last Admin: 08/16/17 19:29 Dose: 0.5 mg Levalbuterol HCl (Xopenex) 0.63 mg IH RQID [facility] Last Admin: 08/16/17 19:29 Dose: 0.63 mg Methylprednisolone (Solu-Medrol) 30 mg IVP Q8H [facility] Last Admin: 08/16/17 18:48 Dose: 30 mg Multivitamins/Minerals (Therapeutic-M Tab) 1 tab PO DAILY [facility] Last Admin: 08/16/17 08:34 Dose: 1 tab Pantoprazole Sodium (Protonix Ec Tab) 40 mg PO DAILY [facility] Last Admin: 08/16/17 08:32 Dose: 40 mg Fluticasone/Salmeterol (Advair Diskus 250/50) 1 puff IH Q12H [facility] Last Admin: 08/15/17 17:07 Dose: 1 puff Tamsulosin HCl (Flomax) 0.8 mg PO HS [facility] Last Admin: 08/15/17 22:18 Dose: 0.8 mg - Labs Labs: 08/16/17 04:50 08/16/17 04:50 PT 11.8 Seconds (9.8-13.1) 08/15/17 10:50 INR 1.1 (0.9-1.2) 08/15/17 10:50 APTT 34.7 Seconds (25.6-37.1) 08/15/17 10:50 - Constitutional Appears: Chronically Ill, Other (mild respiratory distress ) - Head Exam Head Exam: ATRAUMATIC, NORMOCEPHALIC - Eye Exam Eye Exam: EOMI, PERRL Pupil Exam: NORMAL ACCOMODATION - ENT Exam ENT Exam: Mucous Membranes Moist, Normal Exam - Neck Exam Neck Exam: Normal Inspection - Respiratory Exam Respiratory Exam: Decreased Breath Sounds (decreased breath sounds to left abse ), Rhonchi, Wheezes (scattered wheezing more on right hemithorax ) - Cardiovascular Exam Cardiovascular Exam: REGULAR RHYTHM, RRR, +S1, +S2. absent: JVD - GI/Abdominal Exam GI & Abdominal Exam: Soft, Normal Bowel Sounds. absent: Distended, Guarding, Rebound - Rectal Exam Rectal Exam: Deferred - Extremities Exam Extremities Exam: Full ROM, Normal Capillary Refill, Normal Inspection - Back Exam Back Exam: NORMAL INSPECTION - Neurological Exam Neurological Exam: Alert, Awake Additional comments: hard on hearing - Psychiatric Exam Psychiatric exam: Normal Affect - Skin Skin Exam: Dry Additional comments: multiple upper extremity echymotic areas Assessment and Plan - Assessment and Plan (Free Text) Assessment: 82 yo male with history of COPD, HTN/ CAD, BPH, non small cell cancer ogf right lung s/p radiation and chemo brought by roommate because of SOB associated with wheezing and loss of appetite since 2 weeks . Recently diagnosed with flu and URI and was treated with Cipro and Levaquin as outpatient. According to his roommate his condition deteriorated after that.He has been experiencing more SOB , coughing spells, sputum production and has been using his rescue inhaler more than usual. In ER found to be in acute respiratory failure secondary to COPD exacerbation and was placed on BIPAP , started on Spolumedrol IV, Duonebs , Rocephin and Zithromax Admitted to ICU and pulmonary consulted At present improving slowly 1. Acute respiratory failure secondary to COPD exacerbation placed on BIpap initillay and slowly improving Switched to O2 vi anC Continue methylprednisolone IV . Karen dose to 30 mg IV Q8 since patient has history of hallucinations on Prednisone as per his pulmonary continue Duonenbs CXR showed no active disease or infiltrate On Rocephin and Zithromax IV empirically Transfer to telemetry start ambulation 2. Hypertension / CAD stable Resumed home meds cardiology consulted 3.BPH on flomax 4. History on non small cell lung cancer on remission 5. Hard on hearing 6. DVT prophylaxis SCD Lovenox
[2017-08-17] MEDS: MethylPREDNISolone 40 mg Vial IVP SCH ×3 (00:15→21:24)
[2017-08-17] MEDS: Azithromycin 500 MG in Sodium Chloride 0.9% 250 ML IVPB SCH (08:43)
[2017-08-17] MEDS: Ipratropium 0.02% Inhal Soln (0.5 mg/2.5 ml) UD IH SCH ×4 (09:12→19:33)
[2017-08-17] MEDS: Levalbuterol 0.63 MG/3 ML Inhal Soln UD IH SCH ×4 (09:12→19:33)
[2017-08-17 09:26] LABS: HEMOGLOBIN 13.1 g/dL (12.0-18.0); MEAN CELL VOLUME 96.6 fl (80.0-94.0); MEAN CORPUSCULAR HGB CONC 33.1 g/dL (33.0-37.0); RBC 4.09 Mil/uL (4.40-5.90); RED CELL DISTRIBUTION WIDTH 15.6 % (11.5-14.5); WHITE BLOOD COUNT 9.7 K/uL (4.8-10.8)
[2017-08-17] MEDS: Enoxaparin 40 mg Syringe SC SCH (09:39)
[2017-08-17] MEDS: Multivitamin With Minerals Tab PO SCH (09:39)
[2017-08-17] MEDS: Pantoprazole 40 mg EC Tab PO SCH (09:39)
[2017-08-17 09:43] LABS: BLOOD UREA NITROGEN 26 mg/dl (9-20); CALCIUM 8.8 mg/dL (8.4-10.2); GFR AFRICAN-AMERICAN > 60; GFR NON-AFRICAN AMERICAN > 60
--- NOTE | 2017-08-17 11:26 | CP.PCM.PN ---
Subjective - Date & Time of Evaluation Date of Evaluation: 08/17/17 Time of Evaluation: 10:00 - Subjective Subjective: breathing easier cardiac espana pt is stable Objective - Vital Signs/Intake and Output Vital Signs (last 24 hours): Temp Pulse Resp BP Pulse Ox 97.7 F 74 20 164/84 H 100 08/17/17 08:56 08/17/17 09:39 08/17/17 08:56 08/17/17 09:39 08/17/17 08:56 - Medications Medications: Current Medications Albuterol/Ipratropium (Duoneb 3 Mg/0.5 Mg (3 Ml) Ud) 3 ml INH RQ4 PRN PRN Reason: Wheezing Amlodipine Besylate (Norvasc) 5 mg PO DAILY [facility] Last Admin: 08/17/17 09:39 Dose: 5 mg Diazepam (Valium) 1 mg PO BID PRN PRN Reason: Anxiety Last Admin: 08/16/17 18:37 Dose: 1 mg Docusate Sodium (Colace) 100 mg PO BID [facility] Last Admin: 08/17/17 09:40 Dose: 100 mg Enoxaparin Sodium (Lovenox) 40 mg SC DAILY [facility] PRN Reason: Protocol Last Admin: 08/17/17 09:39 Dose: 40 mg Azithromycin 500 mg/ Sodium (Chloride) 250 mls @ 125 mls/hr IVPB DAILY [facility] PRN Reason: Protocol Last Admin: 08/17/17 08:43 Dose: 125 mls/hr Ceftriaxone Sodium 1 gm/ (Sodium Chloride) 100 mls @ 100 mls/hr IVPB DAILY [facility] Last Admin: 08/17/17 08:40 Dose: 100 mls/hr Ipratropium [place] (Atrovent) 0.5 mg IH RQID [facility] Last Admin: 08/17/17 09:12 Dose: Not Given Levalbuterol HCl (Xopenex) 0.63 mg IH RQID [facility] Last Admin: 08/17/17 09:12 Dose: Not Given Methylprednisolone (Solu-Medrol) 30 mg IVP Q8H [facility] Last Admin: 08/17/17 08:41 Dose: 30 mg Multivitamins/Minerals (Therapeutic-M Tab) 1 tab PO DAILY [facility] Last Admin: 08/17/17 09:39 Dose: 1 tab Pantoprazole Sodium (Protonix Ec Tab) 40 mg PO DAILY [facility] Last Admin: 08/17/17 09:39 Dose: 40 mg Fluticasone/Salmeterol (Advair Diskus 250/50) 1 puff IH Q12H [facility] Last Admin: 08/15/17 17:07 Dose: 1 puff Tamsulosin HCl (Flomax) 0.8 mg PO HS [facility] Last Admin: 08/16/17 21:30 Dose: 0.8 mg - Labs Labs: 08/17/17 09:11 08/17/17 09:11 PT 11.8 Seconds (9.8-13.1) 08/15/17 10:50 INR 1.1 (0.9-1.2) 08/15/17 10:50 APTT 34.7 Seconds (25.6-37.1) 08/15/17 10:50
--- NOTE | 2017-08-17 11:48 | CP.PCM.PN ---
Subjective - Date & Time of Evaluation Date of Evaluation: 08/17/17 Time of Evaluation: 11:44 - Subjective Subjective: Doing quite well on current regimen. Has been afebrile w/o leukocytosis. Breathing much more comfortably at this time. Has had some mild anxiety secondary to the steroid therapy. Breath sounds are diminished but present bilaterally. E phase is still prolonged with faint high-pitched wheezes. Bronchial breath sounds are still present in the RUL region (chronic). Adequate oxygenation with supplemental O2 at 3LPM NC. Will reduce solumedrol further today. Stop parenteral antibiotics and begin PO tomorrow. Can be transferred to regular medical floor. Objective - Vital Signs/Intake and Output Vital Signs (last 24 hours): Temp Pulse Resp BP Pulse Ox 97.7 F 74 20 164/84 H 100 08/17/17 08:56 08/17/17 09:39 08/17/17 08:56 08/17/17 09:39 08/17/17 08:56 Intake and Output: 08/16/17 08/17/17 23:59 11:59 Intake Total 250 Output Total 250 Balance 0 - Medications Medications: Current Medications Albuterol/Ipratropium (Duoneb 3 Mg/0.5 Mg (3 Ml) Ud) 3 ml INH RQ4 PRN PRN Reason: Wheezing Amlodipine Besylate (Norvasc) 5 mg PO DAILY [facility] Last Admin: 08/17/17 09:39 Dose: 5 mg Diazepam (Valium) 1 mg PO BID PRN PRN Reason: Anxiety Last Admin: 08/16/17 18:37 Dose: 1 mg Docusate Sodium (Colace) 100 mg PO BID [facility] Last Admin: 08/17/17 09:40 Dose: 100 mg Enoxaparin Sodium (Lovenox) 40 mg SC DAILY [facility] PRN Reason: Protocol Last Admin: 08/17/17 09:39 Dose: 40 mg Azithromycin 500 mg/ Sodium (Chloride) 250 mls @ 125 mls/hr IVPB DAILY [facility] PRN Reason: Protocol Last Admin: 08/17/17 08:43 Dose: 125 mls/hr Ceftriaxone Sodium 1 gm/ (Sodium Chloride) 100 mls @ 100 mls/hr IVPB DAILY [facility] Last Admin: 08/17/17 08:40 Dose: 100 mls/hr Methylprednisolone 20 mg/ (Sodium Chloride) 50 mls @ 100 mls/hr IVPB Q12 [facility] Ipratropium [place] (Atrovent) 0.5 mg IH RQID [facility] Last Admin: 08/17/17 11:36 Dose: 0.5 mg Levalbuterol HCl (Xopenex) 0.63 mg IH RQID [facility] Last Admin: 08/17/17 11:37 Dose: 0.63 mg Multivitamins/Minerals (Therapeutic-M Tab) 1 tab PO DAILY [facility] Last Admin: 08/17/17 09:39 Dose: 1 tab Pantoprazole Sodium (Protonix Ec Tab) 40 mg PO DAILY [facility] Last Admin: 08/17/17 09:39 Dose: 40 mg Fluticasone/Salmeterol (Advair Diskus 250/50) 1 puff IH Q12H [facility] Last Admin: 08/15/17 17:07 Dose: 1 puff Tamsulosin HCl (Flomax) 0.8 mg PO HS [facility] Last Admin: 08/16/17 21:30 Dose: 0.8 mg - Labs Labs: 08/17/17 09:11 08/17/17 09:11 PT 11.8 Seconds (9.8-13.1) 08/15/17 10:50 INR 1.1 (0.9-1.2) 08/15/17 10:50 APTT 34.7 Seconds (25.6-37.1) 08/15/17 10:50 Assessment and Plan (1) Atrial fibrillation, transient Status: Resolved (2) COPD exacerbation Status: Acute (3) Lung cancer Status: Chronic (4) Pulmonary fibrosis Status: Chronic
[2017-08-17] MEDS: Cefdinir 300 MG CAP PO SCH (16:44)
--- NOTE | 2017-08-17 19:11 | CP.PCM.PN ---
Subjective - Date & Time of Evaluation Date of Evaluation: 08/17/17 Time of Evaluation: 09:30 - Subjective Subjective: Patient was seen and examined bedside. Chronically ill male, lying in bed in NAD . With some episodes of confusion and delirium yesterday as per his friend. Feeling a little better today.saturating well on 2 L O2 via NC Still with coughing spells and whitish sputum production. With rhonchi on physical exam BP stable, afebrile Hard on hearing Objective - Vital Signs/Intake and Output Vital Signs (last 24 hours): Temp Pulse Resp BP Pulse Ox 97.9 F 82 18 150/78 98 08/17/17 16:20 08/17/17 16:20 08/17/17 16:20 08/17/17 16:20 08/17/17 16:20 - Medications Medications: Current Medications Albuterol/Ipratropium (Duoneb 3 Mg/0.5 Mg (3 Ml) Ud) 3 ml INH RQ4 PRN PRN Reason: Wheezing Amlodipine Besylate (Norvasc) 5 mg PO DAILY [facility] Last Admin: 08/17/17 09:39 Dose: 5 mg Azithromycin (Zithromax) 250 mg PO DAILY [facility] PRN Reason: Protocol Stop: 08/21/17 09:01 Cefdinir (Omnicef) 300 mg PO BID [facility] Last Admin: 08/17/17 16:44 Dose: 300 mg Diazepam (Valium) 1 mg PO BID PRN PRN Reason: Anxiety Last Admin: 08/16/17 18:37 Dose: 1 mg Docusate Sodium (Colace) 100 mg PO BID [facility] Last Admin: 08/17/17 16:44 Dose: 100 mg Enoxaparin Sodium (Lovenox) 40 mg SC DAILY [facility] PRN Reason: Protocol Last Admin: 08/17/17 09:39 Dose: 40 mg Ipratropium [place] (Atrovent) 0.5 mg IH RQID [facility] Last Admin: 08/17/17 15:54 Dose: 0.5 mg Levalbuterol HCl (Xopenex) 0.63 mg IH RQID [facility] Last Admin: 08/17/17 15:54 Dose: 0.63 mg Methylprednisolone (Solu-Medrol) 20 mg IVP Q12H [facility] Multivitamins/Minerals (Therapeutic-M Tab) 1 tab PO DAILY [facility] Last Admin: 08/17/17 09:39 Dose: 1 tab Pantoprazole Sodium (Protonix Ec Tab) 40 mg PO DAILY [facility] Last Admin: 08/17/17 09:39 Dose: 40 mg Fluticasone/Salmeterol (Advair Diskus 250/50) 1 puff IH Q12H [facility] Last Admin: 08/15/17 17:07 Dose: 1 puff Tamsulosin HCl (Flomax) 0.8 mg PO HS [facility] Last Admin: 08/16/17 21:30 Dose: 0.8 mg - Labs Labs: 08/17/17 09:11 08/17/17 09:11 PT 11.8 Seconds (9.8-13.1) 08/15/17 10:50 INR 1.1 (0.9-1.2) 08/15/17 10:50 APTT 34.7 Seconds (25.6-37.1) 08/15/17 10:50 - Constitutional Appears: Chronically Ill (hard on hearing ) - Head Exam Head Exam: ATRAUMATIC, NORMOCEPHALIC - Eye Exam Eye Exam: EOMI, PERRL Pupil Exam: NORMAL ACCOMODATION - ENT Exam ENT Exam: Mucous Membranes Moist, Normal Exam - Neck Exam Neck Exam: Normal Inspection - Respiratory Exam Respiratory Exam: Decreased Breath Sounds (decreased breath sounds bibasilar), Prolonged Expiratory Phase, Rhonchi (scattered ) - Cardiovascular Exam Cardiovascular Exam: REGULAR RHYTHM, RRR, +S1, +S2. absent: JVD - GI/Abdominal Exam GI & Abdominal Exam: Soft, Normal Bowel Sounds. absent: Distended, Guarding, Rebound - Rectal Exam Rectal Exam: Deferred - Extremities Exam Extremities Exam: Full ROM, Normal Capillary Refill, Normal Inspection. 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 Recently diagnosed with flu and URI and was treated with Cipro and Levaquin as outpatient. According to his roommate his condition deteriorated after that.He has been experiencing more SOB , coughing spells, sputum production and has been using his rescue inhaler more than usual. In ER found to be in acute respiratory failure secondary to COPD exacerbation and was placed on BIPAP , started on Solumedrol IV, Duonebs , Rocephin and Zithromax Admitted to ICU and pulmonary consulted At present improving slowly , transferred to telemetry With moments of confusion and delirium yesterday 1. Acute respiratory failure secondary to COPD exacerbation placed on BIpap initially and slowly improving Switched to O2 via NC and saturating well Karen Solumedrol fast to 20 mg IV Q12 today, since patient has history of hallucinations on Prednisone as per his pulmonary and yesterday had confusion and delirium continue Duonenbs CXR showed no active disease or infiltrate Changed to Po Zithromax and omnicef start ambulation . Pt consulted Plan for D/c Home 2. Hypertension / CAD stable Resumed home meds cardiology consulted 3.BPH on flomax 4. History on non small cell lung cancer on remission 5. Hard on hearing 6. DVT prophylaxis SCD Lovenox
[2017-08-17] MEDS ORDERED: methylPREDNISolone 20 MG in Sodium Chloride 0.9% 50 ML IVPB SCH (21:00)
[2017-08-18 06:14] LABS: BLOOD UREA NITROGEN 25 mg/dl (9-20); CALCIUM 8.5 mg/dL (8.4-10.2); GFR AFRICAN-AMERICAN > 60; GFR NON-AFRICAN AMERICAN > 60
[2017-08-18] MEDS: Ipratropium 0.02% Inhal Soln (0.5 mg/2.5 ml) UD IH SCH ×4 (07:54→19:48)
[2017-08-18] MEDS: Levalbuterol 0.63 MG/3 ML Inhal Soln UD IH SCH ×4 (07:54→19:48)
[2017-08-18] MEDS: Enoxaparin 40 mg Syringe SC SCH (08:35)
[2017-08-18] MEDS: Cefdinir 300 MG CAP PO SCH ×2 (08:37→18:39)
[2017-08-18] MEDS: MethylPREDNISolone 40 mg Vial IVP SCH ×2 (08:37→21:01)
[2017-08-18] MEDS: Pantoprazole 40 mg EC Tab PO SCH (08:37)
[2017-08-18] MEDS: Multivitamin With Minerals Tab PO SCH (08:37)
[2017-08-18] MEDS ORDERED: Levalbuterol 0.63 MG/3 ML Inhal Soln UD INH PRN (11:56)
--- NOTE | 2017-08-18 12:04 | CP.PCM.PN ---
Subjective - Date & Time of Evaluation Date of Evaluation: 08/18/17 Time of Evaluation: 11:58 - Subjective Subjective: Seated in bedside chair, not in distress. SpO2 95% on nasal oxygen @ 2LPM. Coughed up a small amount of creamy, pale yellow sputum. Appetite has been poor, no BM as per patient. He has been afebrile, not tachycardic, mildly hypertensive (steroids?). No dependant edema, no cyanosis. Neck is supple and trachea dev to the right. Dullness unchanged over the right hemithorax superiorly. Breath sounds are present bilaterally, diminished, with sonorous rhonchi. Few faint expiratory wheezes persist, but much improved. He is presently on dual oral antibiotics for AECB. Steroid dose has been reduced to 20MG solumedrol BID. Continue present aerosol therapies. Add Megace to his regimen. Good candidate for TCU. Objective - Vital Signs/Intake and Output Vital Signs (last 24 hours): Temp Pulse Resp BP Pulse Ox 98.1 F 77 20 163/91 H 98 08/18/17 08:00 08/18/17 08:36 08/18/17 08:00 08/18/17 08:36 08/18/17 08:00 - Medications Medications: Current Medications Amlodipine Besylate (Norvasc) 5 mg PO DAILY [facility] Last Admin: 08/18/17 08:36 Dose: 5 mg Azithromycin (Zithromax) 250 mg PO DAILY [facility] PRN Reason: Protocol Stop: 08/21/17 09:01 Last Admin: 08/18/17 08:38 Dose: 250 mg Cefdinir (Omnicef) 300 mg PO BID [facility] Last Admin: 08/18/17 08:37 Dose: 300 mg Diazepam (Valium) 1 mg PO BID PRN PRN Reason: Anxiety Last Admin: 08/16/17 18:37 Dose: 1 mg Docusate Sodium (Colace) 100 mg PO BID [facility] Last Admin: 08/18/17 08:35 Dose: 100 mg Enoxaparin Sodium (Lovenox) 40 mg SC DAILY [facility] PRN Reason: Protocol Last Admin: 08/18/17 08:35 Dose: 40 mg Ipratropium [place] (Atrovent) 0.5 mg IH RQID [facility] Last Admin: 08/18/17 11:00 Dose: 0.5 mg Levalbuterol HCl (Xopenex) 0.63 mg IH RQID [facility] Last Admin: 08/18/17 10:59 Dose: 0.63 mg Levalbuterol HCl (Xopenex) 0.63 mg INH RQ4 PRN PRN Reason: Shortness of Breath Megestrol Acetate (Megace) 400 mg PO DAILY [facility] Methylprednisolone (Solu-Medrol) 20 mg IVP Q12H [facility] Last Admin: 08/18/17 08:37 Dose: 20 mg Multivitamins/Minerals (Therapeutic-M Tab) 1 tab PO DAILY [facility] Last Admin: 08/18/17 08:37 Dose: 1 tab Pantoprazole Sodium (Protonix Ec Tab) 40 mg PO DAILY [facility] Last Admin: 08/18/17 08:37 Dose: 40 mg Fluticasone/Salmeterol (Advair Diskus 250/50) 1 puff IH Q12H [facility] Last Admin: 08/15/17 17:07 Dose: 1 puff Tamsulosin HCl (Flomax) 0.8 mg PO HS [facility] Last Admin: 08/17/17 21:25 Dose: 0.8 mg - Labs Labs: 08/17/17 09:11 08/18/17 05:35 PT 11.8 Seconds (9.8-13.1) 08/15/17 10:50 INR 1.1 (0.9-1.2) 08/15/17 10:50 APTT 34.7 Seconds (25.6-37.1) 08/15/17 10:50 Assessment and Plan (1) Atrial fibrillation, transient Status: Resolved (2) COPD exacerbation Status: Acute (3) Lung cancer Status: Chronic (4) Pulmonary fibrosis Status: Chronic
[2017-08-18] MEDS: Megestrol Acetate 40 mg/ml Cup PO SCH (14:00)
[2017-08-19] MEDS: Ipratropium 0.02% Inhal Soln (0.5 mg/2.5 ml) UD IH SCH ×4 (07:55→19:04)
[2017-08-19] MEDS: Levalbuterol 0.63 MG/3 ML Inhal Soln UD IH SCH ×4 (07:55→19:04)
--- NOTE | 2017-08-19 08:58 | CP.PCM.PN ---
Subjective - Date & Time of Evaluation Date of Evaluation: 08/19/17 Time of Evaluation: 08:58 - Subjective Subjective: Doing fairly well on the present regimen. Methylprednisolone has been changed to PO 8MG BID. Presently on PO antibiotics as well. Megace has been started for poor appetite. There are chronic findings in the right lung with bronchial breathing which are a result of his prior RT. His wheezing is much improved at this time also. He can likely go to [facility] if approved by his insurance. He should have VNS for home when ultimately discharged. Objective - Vital Signs/Intake and Output Vital Signs (last 24 hours): Temp Pulse Resp BP Pulse Ox 97.7 F 76 18 173/89 H 100 08/19/17 08:00 08/19/17 08:00 08/19/17 08:00 08/19/17 08:00 08/19/17 08:00 - Medications Medications: Current Medications Amlodipine Besylate (Norvasc) 5 mg PO DAILY [facility] Last Admin: 08/19/17 06:07 Dose: 5 mg Azithromycin (Zithromax) 250 mg PO DAILY [facility] PRN Reason: Protocol Stop: 08/21/17 09:01 Last Admin: 08/18/17 08:38 Dose: 250 mg Cefdinir (Omnicef) 300 mg PO BID [facility] Last Admin: 08/18/17 18:39 Dose: 300 mg Diazepam (Valium) 1 mg PO BID PRN PRN Reason: Anxiety Last Admin: 08/16/17 18:37 Dose: 1 mg Docusate Sodium (Colace) 100 mg PO BID [facility] Last Admin: 08/18/17 18:39 Dose: 100 mg Enoxaparin Sodium (Lovenox) 40 mg SC DAILY [facility] PRN Reason: Protocol Last Admin: 08/18/17 08:35 Dose: 40 mg Ipratropium [place] (Atrovent) 0.5 mg IH RQID [facility] Last Admin: 08/19/17 07:55 Dose: 0.5 mg Levalbuterol HCl (Xopenex) 0.63 mg IH RQID [facility] Last Admin: 08/19/17 07:55 Dose: 0.63 mg Levalbuterol HCl (Xopenex) 0.63 mg INH RQ4 PRN PRN Reason: Shortness of Breath Megestrol Acetate (Megace) 400 mg PO DAILY [facility] Last Admin: 08/18/17 14:00 Dose: 400 mg Methylprednisolone (Solu-Medrol) 20 mg IVP Q12H [facility] Last Admin: 08/18/17 21:01 Dose: 20 mg Multivitamins/Minerals (Therapeutic-M Tab) 1 tab PO DAILY [facility] Last Admin: 08/18/17 08:37 Dose: 1 tab Pantoprazole Sodium (Protonix Ec Tab) 40 mg PO DAILY [facility] Last Admin: 08/18/17 08:37 Dose: 40 mg Fluticasone/Salmeterol (Advair Diskus 250/50) 1 puff IH Q12H [facility] Last Admin: 08/15/17 17:07 Dose: 1 puff Tamsulosin HCl (Flomax) 0.8 mg PO HS [facility] Last Admin: 08/18/17 21:03 Dose: 0.8 mg - Labs Labs: 08/17/17 09:11 08/18/17 05:35 PT 11.8 Seconds (9.8-13.1) 08/15/17 10:50 INR 1.1 (0.9-1.2) 08/15/17 10:50 APTT 34.7 Seconds (25.6-37.1) 08/15/17 10:50 Assessment and Plan (1) Atrial fibrillation, transient Status: Resolved (2) COPD exacerbation Status: Acute (3) Lung cancer Status: Chronic (4) Pulmonary fibrosis Status: Chronic
[2017-08-19] MEDS: Cefdinir 300 MG CAP PO SCH ×2 (09:48→17:18)
[2017-08-19] MEDS: Pantoprazole 40 mg EC Tab PO SCH (09:48)
[2017-08-19] MEDS: Multivitamin With Minerals Tab PO SCH (09:48)
[2017-08-19] MEDS: Megestrol Acetate 40 mg/ml Cup PO SCH (09:49)
[2017-08-19] MEDS: Enoxaparin 40 mg Syringe SC SCH (09:49)
--- NOTE | 2017-08-19 16:24 | CP.PCM.PN ---
Subjective - Date & Time of Evaluation Date of Evaluation: 08/19/17 Time of Evaluation: 11:00 - Subjective Subjective: Patient seen and examined at bedside. Complaining of some shortness of breath but not worse than yesterday. No new complaints. Denies cp. Able to ambulate with physical therapy. For discharge in AM to [place] Objective - Vital Signs/Intake and Output Vital Signs (last 24 hours): Temp Pulse Resp BP Pulse Ox 97.4 F L 82 18 104/66 96 08/19/17 12:15 08/19/17 12:15 08/19/17 12:15 08/19/17 12:15 08/19/17 12:15 - Medications Medications: Current Medications Amlodipine Besylate (Norvasc) 5 mg PO DAILY [facility] Last Admin: 08/19/17 09:29 Dose: Not Given Azithromycin (Zithromax) 250 mg PO DAILY [facility] PRN Reason: Protocol Stop: 08/21/17 09:01 Last Admin: 08/19/17 09:48 Dose: 250 mg Cefdinir (Omnicef) 300 mg PO BID [facility] Last Admin: 08/19/17 09:48 Dose: 300 mg Diazepam (Valium) 1 mg PO BID PRN PRN Reason: Anxiety Last Admin: 08/16/17 18:37 Dose: 1 mg Docusate Sodium (Colace) 100 mg PO BID [facility] Last Admin: 08/19/17 09:49 Dose: 100 mg Ipratropium [place] (Atrovent) 0.5 mg IH RQID [facility] Last Admin: 08/19/17 16:10 Dose: 0.5 mg Levalbuterol HCl (Xopenex) 0.63 mg IH RQID [facility] Last Admin: 08/19/17 16:10 Dose: 0.63 mg Levalbuterol HCl (Xopenex) 0.63 mg INH RQ4 PRN PRN Reason: Shortness of Breath Lisinopril (Zestril) 5 mg PO DAILY [facility] Last Admin: 08/19/17 09:48 Dose: 5 mg Megestrol Acetate (Megace) 400 mg PO DAILY [facility] Last Admin: 08/19/17 09:49 Dose: 400 mg Methylprednisolone (Medrol) 8 mg PO BID [facility] Last Admin: 08/19/17 09:49 Dose: 8 mg Multivitamins/Minerals (Therapeutic-M Tab) 1 tab PO DAILY [facility] Last Admin: 08/19/17 09:48 Dose: 1 tab Pantoprazole Sodium (Protonix Ec Tab) 40 mg PO DAILY [facility] Last Admin: 08/19/17 09:48 Dose: 40 mg Fluticasone/Salmeterol (Advair Diskus 250/50) 1 puff IH Q12H [facility] Last Admin: 08/15/17 17:07 Dose: 1 puff Tamsulosin HCl (Flomax) 0.8 mg PO HS [facility] Last Admin: 08/18/17 21:03 Dose: 0.8 mg - Labs Labs: 08/17/17 09:11 08/18/17 05:35 PT 11.8 Seconds (9.8-13.1) 08/15/17 10:50 INR 1.1 (0.9-1.2) 08/15/17 10:50 APTT 34.7 Seconds (25.6-37.1) 08/15/17 10:50 - Additional Findings Additional findings: Physical exam: Constitutional- cooperative, awake, alert Head- NCAT, PERRL Eye- PERRL, EOMI ENT- normal exam, MMM. Hard of hearing Neck- normal inspection, supple, no JVD Respiratory- CTAB, bilateral wheezing, no rales or rhonchi. 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 He was recently diagnosed with flu and URI and was treated with Cipro and Levaquin as outpatient. According to his roommate his condition deteriorated after that.He has been experiencing more SOB , coughing spells, sputum production and has been using his rescue inhaler more than usual. In ER he was found to be in acute respiratory failure secondary to COPD exacerbation and was placed on BIPAP , started on Solumedrol IV, Duonebs , Rocephin and Zithromax Admitted to ICU and pulmonary consulted At present improving slowly , transferred to telemetry With moments of confusion and delirium yesterday 1. Acute respiratory failure secondary to COPD exacerbation Dr. Lomax on consultation placed on Bipap initially and slowly improved, Switched to O2 via NC and continues to be saturating well today IV Solumedrol switched to PO, now on 8 mg po BID as per Dr. Lomax continue Xopenex/Atrovent Continue Advair CXR showed no active disease or infiltrate Changed to Po Zithromax and omnicef Able to ambulate with physical therapy For discharge in AM on 08/20/2017 to [place] 2. Hypertension / CAD stable Resumed home meds cardiology consulted 3.BPH on flomax 4. History of non small cell lung cancer in remission 5. Hard of hearing Obtained hearing aids from home 6. Deconditioning/Malnourished Started Megace 400 mg po daily 7. Constipation Started Colace 100 mg po BID 6. DVT prophylaxis SCD Lovenox
[2017-08-20 07:00] VITALS: RESP 18
[2017-08-20] MEDS: Ipratropium 0.02% Inhal Soln (0.5 mg/2.5 ml) UD IH SCH (07:59)
[2017-08-20] MEDS: Levalbuterol 0.63 MG/3 ML Inhal Soln UD IH SCH (07:59)
[2017-08-20 08:22] VITALS: BP 160/84; PULSE 76; TEMP 97.8; O2SAT 100
[2017-08-20] MEDS: Multivitamin With Minerals Tab PO SCH (08:40)
[2017-08-20] MEDS: Cefdinir 300 MG CAP PO SCH (08:40)
[2017-08-20] MEDS: Pantoprazole 40 mg EC Tab PO SCH (08:43)
[2017-08-20] MEDS: Megestrol Acetate 40 mg/ml Cup PO SCH (08:44)
--- NOTE | 2017-08-20 09:01 | CP.PCM.DIS ---
Provider - Provider Date of Admission: 08/15/17 12:25 Attending physician: Mario Perez MD Primary care physician: Dr. Lomax Consults: pulmonary consult speech eval PT consult cardiology consult Time Spent in preparation of Discharge (in minutes): 15 Hospital Course - Lab Results Lab Results: Micro Results 08/15/17 11:32 Blood-Venous Blood Culture - Preliminary NO GROWTH AFTER 4 DAYS 08/15/17 10:00 Blood-Venous Blood Culture - Preliminary NO GROWTH AFTER 4 DAYS 08/15/17 07:46 Naris MRSA Culture (Admit) - Final MRSA NOT DETECTED Most Recent Lab Values WBC 9.7 K/uL (4.8-10.8) 08/17/17 09:11 RBC 4.09 Mil/uL (4.40-5.90) L 08/17/17 09:11 Hgb 13.1 g/dL (12.0-18.0) 08/17/17 09:11 Hct 39.5 % (35.0-51.0) 08/17/17 09:11 MCV 96.6 fl (80.0-94.0) H 08/17/17 09:11 MCH 32.0 pg (27.0-31.0) H 08/17/17 09:11 MCHC 33.1 g/dL (33.0-37.0) 08/17/17 09:11 RDW 15.6 % (11.5-14.5) H 08/17/17 09:11 Plt Count 228 K/uL (130-400) 08/17/17 09:11 MPV 7.0 fl (7.2-11.7) L 08/16/17 04:50 Neut % (Auto) 95.6 % (50.0-75.0) H 08/16/17 04:50 Lymph % (Auto) 2.1 % (20.0-40.0) L 08/16/17 04:50 [place] % (Auto) 2.3 % (0.0-10.0) 08/16/17 04:50 Eos % (Auto) 0.0 % (0.0-4.0) 08/16/17 04:50 Baso % (Auto) 0.0 % (0.0-2.0) 08/16/17 04:50 Neut # (Auto) 6.6 K/uL (1.8-7.0) 08/16/17 04:50 Lymph # (Auto) 0.1 K/uL (1.0-4.3) L 08/16/17 04:50 [place] # (Auto) 0.2 K/uL (0.0-0.8) 08/16/17 04:50 Eos # (Auto) 0.0 K/uL (0.0-0.7) 08/16/17 04:50 Baso # (Auto) 0.0 K/uL (0.0-0.2) 08/16/17 04:50 Neutrophils % (Manual) 97 % (42-75) H 08/16/17 04:50 Lymphocytes % (Manual) 0 % (20-50) L 08/16/17 04:50 Monocytes % (Manual) 3 % (0-10) 08/16/17 04:50 Platelet Estimate Normal (NORMAL) 08/16/17 04:50 Anisocytosis (manual) Slight 08/16/17 04:50 Macrocytosis (manual) Slight 08/16/17 04:50 Ovalocytes Slight 08/16/17 04:50 Schistocytes Slight 08/16/17 04:50 PT 11.8 Seconds (9.8-13.1) 08/15/17 10:50 INR 1.1 (0.9-1.2) 08/15/17 10:50 APTT 34.7 Seconds (25.6-37.1) 08/15/17 10:50 pCO2 49 mm/Hg (35-45) H 08/16/17 14:08 pO2 74 mm/Hg (80-100) L 08/16/17 14:08 HCO3 29.1 mmol/L (21-28) H 08/16/17 14:08 ABG pH 7.41 (7.35-7.45) 08/16/17 14:08 ABG Total CO2 32.6 mmol/L (22-28) H 08/16/17 14:08 ABG O2 Saturation 96.8 % (95-98) 08/16/17 14:08 ABG O2 Content 16.8 ML/dL (15-23) 08/16/17 14:08 ABG Base Excess 5.4 mmol/L (-2.0-3.0) H 08/16/17 14:08 ABG Hemoglobin 12.7 g/dL (11.7-17.4) 08/16/17 14:08 ABG Carboxyhemoglobin 1.4 % (0.5-1.5) 08/16/17 14:08 POC ABG HHb (Measured) 3.1 % (0.0-5.0) 08/16/17 14:08 ABG Methemoglobin 1.6 % (0.0-3.0) 08/16/17 14:08 ABG O2 Capacity 17.4 mL/dL (16-24) 08/16/17 14:08 Fei Test Yes 08/16/17 14:08 ABG Potassium 3.3 mmol/L (3.6-5.2) L 08/15/17 11:16 A-a O2 Difference 79.0 mm/Hg 08/16/17 14:08 Hgb O2 Saturation 93.9 % (95.0-98.0) L 08/16/17 14:08 Sodium 137.0 mmol/L (132-148) 08/15/17 11:16 Chloride 101.0 mmol/L (98-107) 08/15/17 11:16 Glucose 96 mg/dL (75-110) 08/15/17 11:16 Lactate 1.2 mmol/L (0.7-2.1) 08/15/17 11:16 FiO2 30.0 % 08/16/17 14:08 Blood Gas Comments 3l/m nc,rt rad 08/16/17 14:08 Crit Value Read Back N 08/16/17 14:08 Sodium 144 mmol/l (132-148) 08/18/17 05:35 Potassium 3.7 MMOL/L (3.6-5.0) 08/18/17 05:35 Chloride 104 mmol/L (98-107) 08/18/17 05:35 Carbon Dioxide 33 mmol/L (22-30) H 08/18/17 05:35 Anion Gap 11 (10-20) 08/18/17 05:35 BUN 25 mg/dl (9-20) H 08/18/17 05:35 Creatinine 0.7 mg/dl (0.8-1.5) L 08/18/17 05:35 Est GFR ( Amer) > 60 08/18/17 05:35 Est GFR (Non-Af Amer) > 60 08/18/17 05:35 Random Glucose 84 mg/dL (75-110) 08/18/17 05:35 Calcium 8.5 mg/dL (8.4-10.2) 08/18/17 05:35 Phosphorus 2.8 mg/dl (2.5-4.5) 08/15/17 10:50 Magnesium 1.9 MG/DL (1.6-2.3) 08/15/17 10:50 Total Bilirubin 0.7 mg/dl (0.2-1.3) 08/15/17 10:50 AST 48 U/L (17-59) 08/15/17 10:50 ALT 29 U/L (21-72) 08/15/17 10:50 Alkaline Phosphatase 83 U/L (38-126) 08/15/17 10:50 Troponin I 0.0230 ng/mL (0.00-0.120) 08/15/17 10:50 NT-Pro-B Natriuret Pep 2760 pg/ml (0-900) H 08/15/17 10:50 Total Protein 6.4 G/DL (6.3-8.2) 08/15/17 10:50 Albumin 3.4 g/dL (3.5-5.0) L D 08/15/17 10:50 Globulin 3.0 gm/dL (2.2-3.9) 08/15/17 10:50 Albumin/Globulin Ratio 1.1 (1.0-2.1) 08/15/17 10:50 Arterial Blood Potassium 3.3 mmol/L (3.6-5.2) L 08/15/17 11:16 Influenza Typ A,B (EIA) Negative for flu a/b (NEGATIVE) 08/15/17 13:10 - Hospital Course Hospital Course: 82 yo male with history of COPD, HTN/ CAD, BPH, non small cell cancer of right lung s/p radiation and chemo brought by roommate because of SOB associated with wheezing and loss of appetite for 2 weeks . He was recently diagnosed with flu and URI and was treated with Cipro and Levaquin as outpatient. According to his roommate his condition deteriorated after that.He has been experiencing more SOB , coughing spells, sputum production and has been using his rescue inhaler more than usual. In ER he was found to be in acute respiratory failure secondary to COPD exacerbation and was placed on BIPAP , started on Solumedrol IV, Duonebs , Rocephin and Zithromax Admitted to ICU and pulmonary consulted.Showed clinical improvement slowly.His steroids were tapered fast since patient has history of hallucinations while on steroids. Speech therapist consulted for swallow eval and patient placed on finely chopped thin liquids. Pt consulted and recomemnded physical therpay for hi sgeneralized weakness and BOYD At present patient is medically stable, improved , feeling anxious. Will discharge to [facility] for physical therapy 1. Acute respiratory failure secondary to COPD exacerbation clinically improved, saturating 96-98 5 on 2 L O2 via [place] , with no wheezing or respiratory distress at present pulmonary Dr. Lomax consulted placed on Bipap initially and sno on 2 L O2 via [place] IV Solumedrol switched to PO, now on 8 mg po BID continue Xopenex/Atrovent Continue Advair CXR showed no active disease or infiltrate Changed to Po Zithromax and omnicef. will continue for 5 more days Able to ambulate with physical therapy For discharge today to [facility] 2. Hypertension / CAD stable Resumed home meds cardiology consulted 3.BPH on flomax 4. History of non small cell lung cancer in remission 5. Hard of hearing Obtained hearing aids from home 6. Deconditioning/Malnourished Started Megace 400 mg po daily speech therapist consulted . Switched to finely chopped diet with thin liquids 7. Constipation Started Colace 100 mg po BID 6. DVT prophylaxis SCD Lovenox Discharge Exam - Head Exam Head Exam: ATRAUMATIC, NORMOCEPHALIC Additional comments: chronically ill - Eye Exam Eye Exam: EOMI, PERRL Pupil Exam: NORMAL ACCOMODATION - ENT Exam ENT Exam: Mucous Membranes Moist, Normal Exam - Neck Exam Neck exam: Full Rom, Normal Inspection - Respiratory Exam Respiratory Exam: Clear to PA & Lateral, Prolonged Expiratory Phase. absent: Rhonchi, Wheezes, Respiratory Distress - Cardiovascular Exam Cardiovascular Exam: REGULAR RHYTHM, RRR, +S1, +S2. absent: JVD - GI/Abdominal Exam GI & Abdominal Exam: Normal Bowel Sounds, Soft. absent: Distended, Guarding, Rebound, Tenderness - Rectal Exam Rectal Exam: Deferred - Extremities Exam Extremities exam: normal capillary refill, normal inspection, pedal pulses present - Back Exam Back exam: NORMAL INSPECTION - Neurological Exam Neurological exam: Alert, CN II-XII Intact, Oriented x3, Reflexes Normal - Psychiatric Exam Psychiatric exam: Anxious, Normal Affect - Skin Skin Exam: Dry, Intact, Warm Discharge Plan - Follow Up Plan Condition: GUARDED Disposition: TRANSF TO SNF Patient education suggested?: Yes Instructions: COPD (Chronic Obstructive Pulmonary Disease) (DC) Referrals: Dong Alejo MD [Staff Provider] - Walter Lomax MD [Family Provider] -
--- NOTE | 2017-08-20 11:20 | CP.PCM.PN ---
Subjective - Date & Time of Evaluation Date of Evaluation: 08/20/17 Time of Evaluation: 11:17 - Subjective Subjective: Has done quite well with his current therapy. Awaiting discharge and transfer to [facility]. PO intake is improving. Vital signs have been stable. On exam the expiratory phase is still prolonged and there are faint E wheezes. Bronchial breathing present in the right upper lobe has improved. Scattered sonorous rhonchi and dry rales are still present and are chronic. He will continue empiric PO antibiotics and low dose medrol. Aerosol therapy will continue as well. He will apparently need increased dose of antihypertensive medication. Objective - Vital Signs/Intake and Output Vital Signs (last 24 hours): Temp Pulse Resp BP Pulse Ox 97.8 F 76 18 160/84 H 100 08/20/17 08:21 08/20/17 08:43 08/20/17 08:21 08/20/17 08:43 08/20/17 08:21 - Medications Medications: Current Medications Amlodipine Besylate (Norvasc) 5 mg PO DAILY [facility] Last Admin: 08/20/17 08:41 Dose: 5 mg Azithromycin (Zithromax) 250 mg PO DAILY [facility] PRN Reason: Protocol Stop: 08/21/17 09:01 Last Admin: 08/20/17 08:44 Dose: 250 mg Cefdinir (Omnicef) 300 mg PO BID [facility] Last Admin: 08/20/17 08:40 Dose: 300 mg Diazepam (Valium) 1 mg PO BID PRN PRN Reason: Anxiety Last Admin: 08/16/17 18:37 Dose: 1 mg Docusate Sodium (Colace) 100 mg PO BID [facility] Last Admin: 08/20/17 08:42 Dose: 100 mg Ipratropium [place] (Atrovent) 0.5 mg IH RQID [facility] Last Admin: 08/20/17 07:59 Dose: 0.5 mg Levalbuterol HCl (Xopenex) 0.63 mg IH RQID [facility] Last Admin: 08/20/17 07:59 Dose: 0.63 mg Levalbuterol HCl (Xopenex) 0.63 mg INH RQ4 PRN PRN Reason: Shortness of Breath Lisinopril (Zestril) 5 mg PO DAILY [facility] Last Admin: 08/20/17 08:43 Dose: 5 mg Megestrol Acetate (Megace) 400 mg PO DAILY [facility] Last Admin: 08/20/17 08:44 Dose: 400 mg Methylprednisolone (Medrol) 8 mg PO BID [facility] Last Admin: 08/20/17 08:41 Dose: 8 mg Multivitamins/Minerals (Therapeutic-M Tab) 1 tab PO DAILY [facility] Last Admin: 08/20/17 08:40 Dose: 1 tab Pantoprazole Sodium (Protonix Ec Tab) 40 mg PO DAILY [facility] Last Admin: 08/20/17 08:43 Dose: 40 mg Fluticasone/Salmeterol (Advair Diskus 250/50) 1 puff IH Q12H [facility] Last Admin: 08/15/17 17:07 Dose: 1 puff Tamsulosin HCl (Flomax) 0.8 mg PO HS [facility] Last Admin: 08/19/17 21:25 Dose: 0.8 mg - Labs Labs: 08/17/17 09:11 08/18/17 05:35 PT 11.8 Seconds (9.8-13.1) 08/15/17 10:50 INR 1.1 (0.9-1.2) 08/15/17 10:50 APTT 34.7 Seconds (25.6-37.1) 08/15/17 10:50 Assessment and Plan (1) Atrial fibrillation, transient Status: Resolved (2) COPD exacerbation Status: Acute (3) Lung cancer Status: Chronic (4) Pulmonary fibrosis Status: Chronic
== END 2017-08-20 11:56 | DRG 189 ==
LOC: H.ER 10:07 → H.ERHOLD 12:25 → H.ICU/CCU 15:45 → H.TEL 08-16 15:08
PROC: 5A09357 Assistance with Respiratory Ventilation, Less than 24 Consecutive Hours, Continuous Positive Airway Pressure (ICD-10-PCS; principal; 2017-08-15)
DX: J96.00 Acute respiratory failure, unspecified whether with hypoxia or hypercapnia (principal); E46 Unspecified protein-calorie malnutrition; J44.1 Chronic obstructive pulmonary disease with (acute) exacerbation; I48.91 Unspecified atrial fibrillation; J84.10 Pulmonary fibrosis, unspecified; F06.4 Anxiety disorder due to known physiological condition; H91.90 Unspecified hearing loss, unspecified ear; I10 Essential (primary) hypertension; I25.10 Atherosclerotic heart disease of native coronary artery without angina pectoris; Z85.118 Personal history of other malignant neoplasm of bronchus and lung; K59.00 Constipation, unspecified; N40.1 Benign prostatic hyperplasia with lower urinary tract symptoms; Z68.20 Body mass index [BMI] 20.0-20.9, adult; Z87.01 Personal history of pneumonia (recurrent); Z92.21 Personal history of antineoplastic chemotherapy; Z92.3 Personal history of irradiation; Z87.891 Personal history of nicotine dependence; Z87.440 Personal history of urinary (tract) infections

== ENCOUNTER 2017-09-20 11:42 | Inpatient (IN) | payer BC, MEDICARE ==
[2017-09-20 11:42] VITALS: BMI 22.4
[2017-09-20] MEDS ORDERED: Sodium Chloride 0.9% 500 ML IV STA ×2 (12:18→15:48)
[2017-09-20] MEDS ORDERED: Albuterol-Ipratrop 3 mg / 0.5 (3 ml) UD IH STA (12:18)
[2017-09-20] MEDS ORDERED: MethylPREDNISolone 40 mg Vial IVP ONE (12:18)
[2017-09-20] MEDS ORDERED: Albuterol-Ipratrop 3 mg / 0.5 (3 ml) UD INH STA (12:18)
[2017-09-20] MEDS ORDERED: Albuterol-Ipratrop 3 mg / 0.5 (3 ml) UD ONE (12:30)
[2017-09-20] MEDS ORDERED: MethylPREDNISolone 40 mg Vial ONE (12:30)
[2017-09-20 12:41] LABS: ABG ALLEN TEST YES; ARTERIAL BLOOD GAS HCO3 27.1 mmol/L (21-28); ARTERIAL BLOOD GAS O2 SAT 99.4 % (95-98); ARTERIAL BLOOD GAS PCO2 31 mm/Hg (35-45); ARTERIAL BLOOD GAS PH 7.52 (7.35-7.45); ARTERIAL BLOOD GAS PO2 75 mm/Hg (80-100); ARTERIAL BLOOD GAS TCO2 26.3 mmol/L (22-28)
--- NOTE | 2017-09-20 12:41 | ED PDOC ---
HPI: General Adult Time Seen by Provider: 09/20/17 12:02 Chief Complaint (Nursing): Weakness/Neurological Deficit Chief Complaint (Provider): Weakness History Per: Patient, Family History/Exam Limitations: no limitations Onset/Duration Of Symptoms: Days (4 days) Additional Complaint(s): Pt. with weakness all over. Pt. admitted almost 1 month ago here for copd exac. Was dc to rehab. There was getting better then for 3 weeks declining. For 4 days worsening weakness all over. Confusion occasionally. Dyspnea off and on. No chest pain or abd pain. Chronic low back pain, not worse then usual since fall months ago. Cough occasionally. No numbness, tingles. Past Medical History Vital Signs: Last Vital Signs Temp 98.0 F 09/20/17 11:46 Pulse 110 H 09/20/17 12:04 Resp 20 09/20/17 12:04 BP 106/85 09/20/17 12:04 Pulse Ox 100 09/20/17 15:47 - Medical History PMH: Anxiety, Bronchitis, COPD, Emphysema, HTN, Malignancy (lung (gone now)), Pneumonia Denies: HIV, Chronic Kidney Disease - Family History Family History: States: Unknown Family Hx - Living Arrangements Living Arrangements: With Family - Social History Alcohol: None Drugs: Denies - Home Medications Home Medications: Ambulatory Orders Medication Instructions Recorded Fluticasone/Salmeterol 250/50 1 puff IH Q12H 08/15/17 [Advair Diskus 250/50] Tamsulosin [Flomax] 0.8 mg PO HS 08/15/17 Vitamin B Complex [Super B-50 1 cap PO DAILY 08/15/17 Complex] Docusate [Colace] 100 mg PO BID cap 08/18/17 Ipratropium 0.02% [Atrovent] 0.5 mg IH RQID neb 08/18/17 Multimineral/Multivitamin 1 tab PO DAILY tab 08/18/17 [Therapeutic-M Tab] Pantoprazole [Protonix EC Tab] 40 mg PO DAILY ect 08/18/17 amLODIPine [Norvasc] 5 mg PO DAILY tab 08/18/17 Lisinopril [Zestril] 5 mg PO DAILY tab 08/19/17 Acetaminophen [Tylenol 325mg tab] 650 mg PO Q4 PRN 09/20/17 Acetaminophen [Tylenol 325mg tab] 650 mg PO Q4 PRN 09/20/17 Alendronate [Fosamax] 70 mg PO MO 09/20/17 Calcium Carbonate [Calcium] 500 mg PO QPM 09/20/17 Enoxaparin [Lovenox] 40 mg SC QPM 09/20/17 Famotidine [Pepcid] 20 mg PO BID 09/20/17 Lidocaine 5% [Lidoderm] 1 patch TD DAILY 09/20/17 Mag Hydrox/Aluminum Hyd/Simeth 30 ml PO Q4 PRN 09/20/17 [Maalox Advanced Suspension] Magnesium Hydroxide [Milk Of 30 ml PO DAILY PRN 09/20/17 Magnesia] Megestrol Acetate [Megace] 400 mg PO BID 09/20/17 Methylprednisolone [Medrol] 8 mg PO BID 09/20/17 methylPREDNISolone [Solu-Medrol] 125 mg IV HS 09/20/17 - Allergies Allergies/Adverse Reactions: Allergies Allergy/AdvReac Type Severity Reaction Status Date / Time No Known Allergies Allergy Verified 05/11/17 12:09 Review of Systems ROS Statement: Except As Marked, All Systems Reviewed And Found Negative Constitutional: Positive for: Weakness Respiratory: Positive for: Cough, Shortness of Breath Neurological: Positive for: Weakness, Confusion Physical Exam - Reviewed Nursing Documentation Reviewed: Yes Vital Signs Reviewed: Yes - Physical Exam Appears: Positive for: Non-toxic, No Acute Distress Head Exam: Positive for: ATRAUMATIC, NORMAL INSPECTION, NORMOCEPHALIC Skin: Positive for: Normal Color, Warm, DRY Eye Exam: Positive for: EOMI, Normal appearance, PERRL ENT: Positive for: Normal ENT Inspection Neck: Positive for: Normal, Painless ROM Cardiovascular/Chest: Positive for: Regular Rate, Rhythm Respiratory: Positive for: Decreased Breath Sounds, Wheezing (mild b/l). Negative for: Accessory Muscle Use Gastrointestinal/Abdominal: Positive for: Normal Exam, Bowel Sounds, Soft. Negative for: Tenderness Back: Positive for: Normal Inspection. Negative for: L CVA Tenderness, R CVA Tenderness Extremity: Positive for: Normal ROM. 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 Per Calc, does not meet sepsis criteria. Pt. uti, copd exac , and chf exac. Will monitor chf. ASA to be given. 1552: Spoke with Dr. Perez. Will admit. Pt. known to his service. Disposition - Clinical Impression Clinical Impression: Confusion, UTI (urinary tract infection), COPD exacerbation, CHF (congestive heart failure) - Patient ED Disposition Is Patient to be Admitted: Yes Counseled Patient/Family Regarding: Studies Performed, Diagnosis - Disposition Disposition Time: 15:53 Condition: FAIR - POA Present On Arrival: None
--- NOTE | 2017-09-20 13:05 | RAD ---
HISTORY: Dyspnea. COMPARISON: 08/24/2017 FINDINGS: LUNGS: Stable consolidative changes with volume loss right upper lobe. PLEURA: No significant pleural effusion identified, no pneumothorax apparent. CARDIOVASCULAR: No radiographic findings to suggest acute or significant cardiovascular disease. Venous access catheter in stable, satisfactory position. OSSEOUS STRUCTURES: No significant abnormalities. VISUALIZED UPPER ABDOMEN: Normal. OTHER FINDINGS: None. IMPRESSION: Stable findings right upper lobe. Otherwise unremarkable study.
[2017-09-20 13:07] LABS: SQUAMOUS EPITHIAL 1 /hpf (0-5); URINE BACTERIA MANY (<OCC); URINE BILIRUBIN NEGATIVE (NEGATIVE); URINE BLOOD SMALL (NEGATIVE); URINE CALCIUM OXALATE CRYSTALS RARE /hpf (<OCC); URINE CLARITY CLOUDY (Clear); URINE COLOR AMBER (YELLOW); URINE GLUCOSE (UA) NEG (Normal); URINE HYALINE CAST 0-2 /hpf (0-2); URINE LEUKOCYTE ESTERASE LARGE Leu/uL (Negative); URINE PROTEIN NEGATIVE (NEGATIVE); URINE UROBILINOGEN 0.2-1.0 mg/dL (0.2-1.0)
--- NOTE | 2017-09-20 13:48 | CT ---
PROCEDURE: CT HEAD WITHOUT CONTRAST. HISTORY: headache COMPARISON: 11/05/2015 CT head TECHNIQUE: Axial computed tomography images were obtained through the head/brain without intravenous contrast. Coronal and sagittal reconstructed images. Radiation dose: Total exam DLP = 2007.11 mGy-cm. This CT exam was performed using one or more of the following dose reduction techniques: Automated exposure control, adjustment of the mA and/or kV according to patient size, and/or use of iterative reconstruction technique. FINDINGS: HEMORRHAGE: No intracranial hemorrhage. BRAIN: No mass effect or edema. Cortical and cerebellar atrophy, periventricular small vessel disease. VENTRICLES: Unremarkable. No hydrocephalus. CALVARIUM: Unremarkable. PARANASAL SINUSES: Unremarkable as visualized. No significant inflammatory changes. MASTOID AIR CELLS: Unremarkable as visualized. No inflammatory changes. OTHER FINDINGS: None. IMPRESSION: No acute intracranial abnormalities. No significant findings to account for the clinical presentation. No significant interval change compared to the prior examination(s).
[2017-09-20 14:30] LABS: BASO % 0.1 % (0.0-2.0); EOS % 0.1 % (0.0-4.0); HEMOGLOBIN 12.1 g/dL (12.0-18.0); LYMPH # 0.3 K/uL (1.0-4.3); LYMPH % 2.8 % (20.0-40.0); MEAN CELL VOLUME 97.4 fl (80.0-94.0); MEAN CORPUSCULAR HEMOGLOBIN 32.2 pg (27.0-31.0); MEAN CORPUSCULAR HGB CONC 33.1 g/dL (33.0-37.0); MEAN PLATELET VOLUME 7.4 fl (7.2-11.7); MONO # 0.2 K/uL (0.0-0.8); MONO % 2.1 % (0.0-10.0); NEUT # 10.2 K/uL (1.8-7.0); NEUT % 94.9 % (50.0-75.0); NRBC % 0.1 % (0.0-0.0); PLATELET COUNT 157 K/uL (130-400); RBC 3.76 Mil/uL (4.40-5.90); RED CELL DISTRIBUTION WIDTH 15.6 % (11.5-14.5); WHITE BLOOD COUNT 10.7 K/uL (4.8-10.8)
[2017-09-20 14:34] LABS: INR 1.2 (0.9-1.2); PARTIAL THROMBOPLASTIN TIME 26.6 Seconds (25.6-37.1); PROTHROMBIN TIME 13.1 Seconds (9.8-13.1)
[2017-09-20 14:46] LABS: ALBUMIN 2.9 g/dL (3.5-5.0); ALT/SGPT 136 U/L (21-72); AST/SGOT 39 U/L (17-59); BLOOD UREA NITROGEN 34 mg/dl (9-20); CALCIUM 8.7 mg/dL (8.4-10.2); GFR AFRICAN-AMERICAN > 60; GFR NON-AFRICAN AMERICAN > 60
[2017-09-20] MEDS ORDERED: Ciprofloxacin 400mg/200ml D5W 400 MG/200 ML BAG IV STA (14:47)
[2017-09-20 15:05] LABS: B-TYPE NATRIURETIC PEPTIDE 1930 pg/ml (0-900)
[2017-09-20 15:37] LABS: ANISOCYTOSIS SLIGHT; BANDS 5 % (0-2); LYMPHOCYTE 4 % (20-50); METAMYELOCYTE 1 % (0-0); MONOCYTE 3 % (0-10); NEUTROPHIL 87 % (42-75); PLATELET ESTIMATE NORMAL (NORMAL); TOTAL CELLS COUNTED 100
[2017-09-20 15:38] LABS: OVALOCYTES SLIGHT; TOXIC GRANULATION PRESENT
[2017-09-20] MEDS ORDERED: Ciprofloxacin 400mg/200ml D5W 400 MG/200 ML BAG IVPB ONE (16:08)
--- NOTE | 2017-09-20 16:27 | CP.PCM.HP ---
History of Present Illness - History of Present Illness History of Present Illness: 82 yo male with history of COPD, HTN, CAD, BPH, non-small cancer of the right lung (post radiation and chemo) brought in from [facility] because of SOB, lethargy and generalized weakness since 4 days ago. Patient was recently admitted a month ago for COPD exacerbation and sent to [facility] because of generalized weakness and deconditioning. Present on Admission - Present on Admission Any Indicators Present on Admission: No History of DVT/PE: No History of Uncontrolled Diabetes: No Urinary Catheter: No Decubitus Ulcer Present: No Review of Systems - Review of Systems All systems: reviewed and no additional remarkable complaints except (aside from those mentioned above, 12 point system review were negative by me) Past Patient History - Infectious Disease Hx of Infectious Diseases: None - Tetanus Immunizations Tetanus Immunization: Unknown - Past Medical History & Family History Past Medical History?: Yes - Past Social History Smoking Status: Former Smoker Alcohol: None Drugs: Denies Home Situation {Lives}: Detention - CARDIAC Hx Hypertension: Yes - PULMONARY Hx Bronchitis: Yes Hx Chronic Obstructive Pulmonary Disease (COPD): Yes Hx Emphysema: Yes Hx Pneumonia: Yes - NEUROLOGICAL Hx Neurological Disorder: No - HEENT Hx Cataracts: Yes Hx Deafness: Yes - RENAL Hx Chronic Kidney Disease: No - ENDOCRINE/METABOLIC Hx Endocrine Disorders: No - HEMATOLOGICAL/ONCOLOGICAL Hx Human Immunodeficiency Virus (HIV): No - INTEGUMENTARY Hx Dermatological Problems: No - MUSCULOSKELETAL/RHEUMATOLOGICAL Hx Back Pain: Yes Hx Falls: Yes - GASTROINTESTINAL Hx Gastrointestinal Disorders: No - GENITOURINARY/GYNECOLOGICAL Hx Prostate Problems: Yes Hx Urinary Tract Infection: Yes - PSYCHIATRIC Hx Anxiety: Yes - SURGICAL HISTORY Hx Vascular Access Device: Yes - ANESTHESIA Hx Anesthesia: No Meds Allergies/Adverse Reactions: Allergies Allergy/AdvReac Type Severity Reaction Status Date / Time No Known Allergies Allergy Verified 05/11/17 12:09 Physical Exam - Constitutional Appears: No Acute Distress - Head Exam Head Exam: ATRAUMATIC - Eye Exam Eye Exam: absent: Scleral icterus - ENT Exam ENT Exam: Mucous Membranes Moist - Neck Exam Neck exam: Negative for: Meningismus - Respiratory Exam Respiratory Exam: Decreased Breath Sounds. absent: Respiratory Distress - Cardiovascular Exam Cardiovascular Exam: REGULAR RHYTHM, +S1, +S2 - GI/Abdominal Exam GI & Abdominal Exam: Soft. absent: Tenderness - Rectal Exam Rectal Exam: Deferred - Extremities Exam Extremities exam: Negative for: pedal edema - Back Exam Back exam: absent: tenderness - Neurological Exam Neurological exam: Altered - Psychiatric Exam Psychiatric exam: Flat Affect - Skin Skin Exam: Dry, Intact Results - Vital Signs Recent Vital Signs: Last Vital Signs Temp 98.0 F 09/20/17 11:46 Pulse 110 H 09/20/17 12:04 Resp 20 09/20/17 12:04 BP 106/85 09/20/17 12:04 Pulse Ox 100 09/20/17 15:54 - Labs Result Diagrams: 09/20/17 14:20 09/20/17 14:20 Labs: Laboratory Results - last 24 hr 09/20/17 09/20/17 09/20/17 12:03 12:20 12:46 WBC RBC Hgb Hct MCV MCH MCHC RDW Plt Count MPV Neut % (Auto) Lymph % (Auto) Loving % (Auto) Eos % (Auto) Baso % (Auto) Neut # (Auto) Lymph # (Auto) Loving # (Auto) Eos # (Auto) Baso # (Auto) Neutrophils % (Manual) Band Neutrophils % Lymphocytes % (Manual) Monocytes % (Manual) Metamyelocytes % Toxic Granulation Platelet Estimate Anisocytosis (manual) Macrocytosis (manual) Ovalocytes PT INR APTT pCO2 31 L pO2 75 L HCO3 27.1 ABG pH 7.52 H ABG Total CO2 26.3 ABG O2 Saturation 99.4 H ABG Base Excess 2.9 Fei Test Yes ABG Potassium 4.0 A-a O2 Difference 36.0 Sodium 139.0 Chloride 112.0 H Glucose 97 Lactate 1.2 Vent Mode Ra FiO2 21.0 Potassium Carbon Dioxide Anion Gap BUN Creatinine Est GFR ( Amer) Est GFR (Non-Af Amer) POC Glucose (mg/dL) 106 Random Glucose Calcium Total Bilirubin AST ALT Alkaline Phosphatase Troponin I NT-Pro-B Natriuret Pep Total Protein Albumin Globulin Albumin/Globulin Ratio Arterial Blood Potassium 4.0 Urine Color Urine Clarity Urine pH Ur Specific [place] Urine Protein Urine Glucose (UA) Urine Ketones Urine Blood Urine Nitrate Urine Bilirubin Urine Urobilinogen Ur Leukocyte Esterase Urine RBC (Auto) Urine Microscopic WBC Ur Squamous Epith Cells Calcium Oxalate Crystal Urine Bacteria Hyaline Casts Urine Yeast (Budding) Influenza Typ A,B (EIA) Negative for flu a/b 09/20/17 09/20/17 09/20/17 12:46 14:20 14:20 WBC 10.7 RBC 3.76 L Hgb 12.1 Hct 36.7 MCV 97.4 H MCH 32.2 H MCHC 33.1 RDW 15.6 H Plt Count 157 MPV 7.4 Neut % (Auto) 94.9 H Lymph % (Auto) 2.8 L Loving % (Auto) 2.1 Eos % (Auto) 0.1 Baso % (Auto) 0.1 Neut # (Auto) 10.2 H Lymph # (Auto) 0.3 L Loving # (Auto) 0.2 Eos # (Auto) 0.0 Baso # (Auto) 0.0 Neutrophils % (Manual) 87 H Band Neutrophils % 5 H Lymphocytes % (Manual) 4 L Monocytes % (Manual) 3 Metamyelocytes % 1 H Toxic Granulation Present Platelet Estimate Normal Anisocytosis (manual) Slight Macrocytosis (manual) Slight Ovalocytes Slight PT INR APTT pCO2 pO2 HCO3 ABG pH ABG Total CO2 ABG O2 Saturation ABG Base Excess Fei Test ABG Potassium A-a O2 Difference Sodium 145 Chloride 107 Glucose Lactate Vent Mode FiO2 Potassium 3.7 Carbon Dioxide 27 Anion Gap 15 BUN 34 H Creatinine 0.7 L Est GFR ( Amer) > 60 Est GFR (Non-Af Amer) > 60 POC Glucose (mg/dL) Random Glucose 96 Calcium 8.7 Total Bilirubin 0.5 AST 39 ALT 136 H D Alkaline Phosphatase 52 Troponin I 0.0410 NT-Pro-B Natriuret Pep 1930 H Total Protein 5.7 L Albumin 2.9 L Globulin 2.8 Albumin/Globulin Ratio 1.0 Arterial Blood Potassium Urine Color Mi Urine Clarity Cloudy Urine pH 5.0 Ur Specific [place] 1.020 Urine Protein Negative Urine Glucose (UA) Neg Urine Ketones Negative Urine Blood Small Urine Nitrate Negative Urine Bilirubin Negative Urine Urobilinogen 0.2-1.0 Ur Leukocyte Esterase Large Urine RBC (Auto) 16 H Urine Microscopic WBC 33 H Ur Squamous Epith Cells 1 Calcium Oxalate Crystal Rare Urine Bacteria Many H Hyaline Casts 0-2 Urine Yeast (Budding) Rare H Influenza Typ A,B (EIA) 09/20/17 14:20 WBC RBC Hgb Hct MCV MCH MCHC RDW Plt Count MPV Neut % (Auto) Lymph % (Auto) Loving % (Auto) Eos % (Auto) Baso % (Auto) Neut # (Auto) Lymph # (Auto) Loving # (Auto) Eos # (Auto) Baso # (Auto) Neutrophils % (Manual) Band Neutrophils % Lymphocytes % (Manual) Monocytes % (Manual) Metamyelocytes % Toxic Granulation Platelet Estimate Anisocytosis (manual) Macrocytosis (manual) Ovalocytes PT 13.1 INR 1.2 APTT 26.6 pCO2 pO2 HCO3 ABG pH ABG Total CO2 ABG O2 Saturation ABG Base Excess Fei Test ABG Potassium A-a O2 Difference Sodium Chloride Glucose Lactate Vent Mode FiO2 Potassium Carbon Dioxide Anion Gap BUN Creatinine Est GFR ( Amer) Est GFR (Non-Af Amer) POC Glucose (mg/dL) Random Glucose Calcium Total Bilirubin AST ALT Alkaline Phosphatase Troponin I NT-Pro-B Natriuret Pep Total Protein Albumin Globulin Albumin/Globulin Ratio Arterial Blood Potassium Urine Color Urine Clarity Urine pH Ur Specific [place] Urine Protein Urine Glucose (UA) Urine Ketones Urine Blood Urine Nitrate Urine Bilirubin Urine Urobilinogen Ur Leukocyte Esterase Urine RBC (Auto) Urine Microscopic WBC Ur Squamous Epith Cells Calcium Oxalate Crystal Urine Bacteria Hyaline Casts Urine Yeast (Budding) Influenza Typ A,B (EIA) Assessment & Plan - Assessment and Plan (Free Text) Assessment: 82 yo male with history of COPD, HTN, CAD, BPH, non-small cancer of the right lung (post radiation and chemo) brought in from [facility] because of SOB, lethargy and generalized weakness since 4 days ago. Patient was recently admitted a month ago for COPD exacerbation and sent to [facility] because of generalized weakness and deconditioning. 1. UTI blood culture urine culture Rocephin 1gm IV daily 2. COPD Duoneb q 4hrs prn for wheezing/SOB Advair 250/50 1 puff q 12hrs 3. HTN BP stable continue Amlodipine and Lisinopril
[2017-09-21] MEDS: Fluticasone-Salmeterol 250-50mcg Diskus IH SCH ×2 (05:00→17:25)
[2017-09-21 05:54] LABS: BASO # 0.1 K/uL (0.0-0.2); EOS % 0.1 % (0.0-4.0); HEMOGLOBIN 11.1 g/dL (12.0-18.0); LYMPH # 0.3 K/uL (1.0-4.3); LYMPH % 3.4 % (20.0-40.0); MEAN CELL VOLUME 97.2 fl (80.0-94.0); MEAN CORPUSCULAR HEMOGLOBIN 32.1 pg (27.0-31.0); MEAN PLATELET VOLUME 7.4 fl (7.2-11.7); MONO # 0.3 K/uL (0.0-0.8); MONO % 3.2 % (0.0-10.0); NEUT # 9.2 K/uL (1.8-7.0); NEUT % 92.3 % (50.0-75.0); NRBC % 0.1 % (0.0-0.0); RBC 3.46 Mil/uL (4.40-5.90); RED CELL DISTRIBUTION WIDTH 15.7 % (11.5-14.5); WHITE BLOOD COUNT 9.9 K/uL (4.8-10.8)
[2017-09-21 06:00] LABS: BLOOD UREA NITROGEN 31 mg/dl (9-20); GFR AFRICAN-AMERICAN > 60; GFR NON-AFRICAN AMERICAN > 60
[2017-09-21] MEDS ORDERED: Patient's Own Med (Vitamin B Complex [Super B-50 Complex] 1 CAP) PO SCH (09:00)
[2017-09-21] MEDS ORDERED: Pantoprazole 40 mg EC Tab PO SCH (09:00)
[2017-09-21] MEDS: Enoxaparin 40 mg Syringe SC SCH (09:03)
[2017-09-21] MEDS: Megestrol Acetate 40 mg/ml Cup PO SCH ×2 (09:03→17:24)
[2017-09-21] MEDS: Multivitamin With Minerals Tab PO SCH (09:04)
[2017-09-21] MEDS: Lidocaine 5% Patch TD SCH (09:05)
[2017-09-21] MEDS: Pantoprazole 40 mg EC Tab PO SCH (09:06)
--- NOTE | 2017-09-21 11:07 | CARD ---
APPROVED REPORT EKG Measurement Heart [id number] <Conclusion> Atrial fibrillation with rapid ventricular response Nonspecific ST and T wave abnormality Abnormal ECG artefact present
--- NOTE | 2017-09-21 14:51 | CP.PCM.PN ---
Subjective - Date & Time of Evaluation Date of Evaluation: 09/21/17 Time of Evaluation: 09:30 - Subjective Subjective: Patient seen and examined. Appeared more lucid today. Denied any complaint. Objective - Vital Signs/Intake and Output Vital Signs (last 24 hours): Temp Pulse Resp BP Pulse Ox 98.2 F 74 20 110/51 L 98 09/21/17 12:00 09/21/17 12:00 09/21/17 12:00 09/21/17 12:00 09/21/17 12:00 - Medications Medications: Current Medications Alendronate Sodium (Fosamax) 70 mg PO MO [facility] Amlodipine Besylate (Norvasc) 5 mg PO DAILY [facility] Last Admin: 09/21/17 09:04 Dose: 5 mg Calcium Carbonate (Oscal) 500 mg PO QPM [facility] Last Admin: 09/20/17 21:38 Dose: 500 mg Docusate Sodium (Colace) 100 mg PO BID PRN PRN Reason: Constipation Enoxaparin Sodium (Lovenox) 40 mg SC DAILY [facility] PRN Reason: Protocol Last Admin: 09/21/17 09:03 Dose: 40 mg Ceftriaxone Sodium 1 gm/ (Dextrose) 100 mls @ 100 mls/hr IVPB DAILY [facility] PRN Reason: Protocol Last Admin: 09/21/17 09:01 Dose: 100 mls/hr Lidocaine (Lidoderm) 1 ea TD DAILY [facility] Last Admin: 09/21/17 09:05 Dose: 1 ea Lisinopril (Zestril) 5 mg PO DAILY [facility] Last Admin: 09/21/17 09:04 Dose: 5 mg Megestrol Acetate (Megace) 400 mg PO BID [facility] Last Admin: 09/21/17 09:03 Dose: 400 mg Multivitamins/Minerals (Therapeutic-M Tab) 1 tab PO DAILY [facility] Last Admin: 09/21/17 09:04 Dose: 1 tab Pantoprazole Sodium (Protonix Ec Tab) 40 mg PO DAILY [facility] Last Admin: 09/21/17 09:06 Dose: 40 mg Fluticasone/Salmeterol (Advair Diskus 250/50) 1 puff IH Q12H [facility] Last Admin: 09/21/17 05:00 Dose: 1 puff Tamsulosin HCl (Flomax) 0.8 mg PO HS [facility] Last Admin: 09/20/17 21:37 Dose: 0.8 mg - Labs Labs: 09/21/17 04:25 09/21/17 04:25 PT 13.1 Seconds (9.8-13.1) 09/20/17 14:20 INR 1.2 (0.9-1.2) 09/20/17 14:20 APTT 26.6 Seconds (25.6-37.1) 09/20/17 14:20 - Constitutional Appears: No Acute Distress - Head Exam Head Exam: ATRAUMATIC - Eye Exam Eye Exam: absent: Scleral icterus - ENT Exam ENT Exam: Mucous Membranes Moist - Neck Exam Neck Exam: absent: Meningismus - Respiratory Exam Respiratory Exam: Decreased Breath Sounds. absent: Rhonchi, Wheezes, Respiratory Distress - Cardiovascular Exam Cardiovascular Exam: REGULAR RHYTHM, +S1, +S2 - GI/Abdominal Exam GI & Abdominal Exam: Soft. absent: Tenderness - Rectal Exam Rectal Exam: Deferred - Neurological Exam Neurological Exam: Alert - Psychiatric Exam Psychiatric exam: Normal Affect - Skin Skin Exam: Dry, Intact Assessment and Plan - Assessment and Plan (Free Text) Assessment: 82 yo male with history of COPD, HTN, CAD, BPH, non-small cancer of the right lung (post radiation and chemo) brought in from [facility] because of SOB, lethargy and generalized weakness since 4 days ago. Patient was recently admitted a month ago for COPD exacerbation and sent to [facility] because of generalized weakness and deconditioning. 1. UTI urine culture: grew multiple species blood culture: still pending Rocephin 1gm IV daily repeat urine culture may be discharged home tomorrow 2. COPD Duoneb q 4hrs prn for wheezing/SOB Advair 250/50 1 puff q 12hrs Prednisone 10mg PO daily 3. HTN BP stable continue Amlodipine and Lisinopril
[2017-09-21] MEDS ORDERED: Albuterol-Ipratrop 3 mg / 0.5 (3 ml) UD INH PRN (15:00)
[2017-09-22] MEDS: Fluticasone-Salmeterol 250-50mcg Diskus IH SCH (05:15)
[2017-09-22] MEDS ORDERED: MethylPREDNISolone 40 mg Vial IVP SCH (09:00)
[2017-09-22] MEDS ORDERED: methylPREDNISolone 30 MG in Sodium Chloride 0.9% 50 ML IVPB SCH (09:00)
--- NOTE | 2017-09-22 09:03 | CARD ---
APPROVED REPORT EKG Measurement Heart [id number] <Conclusion> Sinus rhythm with premature supraventricular complexes Otherwise normal ECG baseline artefact
[2017-09-22] MEDS: Multivitamin With Minerals Tab PO SCH (09:39)
[2017-09-22] MEDS: Pantoprazole 40 mg EC Tab PO SCH (09:39)
[2017-09-22] MEDS: Megestrol Acetate 40 mg/ml Cup PO SCH (09:39)
[2017-09-22] MEDS: Enoxaparin 40 mg Syringe SC SCH (09:40)
[2017-09-22] MEDS: Lidocaine 5% Patch TD SCH (09:41)
[2017-09-22 12:26] VITALS: RESP 20; TEMP 97.9
--- NOTE | 2017-09-22 12:35 | CP.PCM.CON ---
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 He had responded well to therapy and was discharged to subacute rehabilitation. He was sent to the emergency room from the rehabilitation facility the other day because of worsening mentation and was found to have a urinary tract infection. He also has persistent cough with sputum production and dyspnea as well as hypoxemia because of his chronic lung disease. He underwent radiation and chemotherapy for the carcinoma of the right lung and has subsequent postinflammatory fibrosis with significant volume loss in the right hemithorax. His past medical history includes the asthma mentioned non-small cell lung cancer as well as prior pneumonia, chronic obstructive pulmonary disease, hypertension, coronary artery disease, hepatitis, urinary tract infections, cataracts. He does not have a history of peptic ulcer disease, diabetes, renal disease or bleeding disorder or seizure disorder. Allergies: No known drug or seasonal allergies. Social history: Former heavy cigarette smoker who discontinued his habit 10 years ago. Smoked for more than 50 years. Heavy alcohol intake in the past, discontinued in 1977. Denies illicit drug use. Past Patient History - Infectious Disease Hx of Infectious Diseases: None - Tetanus Immunizations Tetanus Immunization: Unknown - Past Medical History & Family History Past Medical History?: Yes - Past Social History Smoking Status: Former Smoker - CARDIAC Hx Hypertension: Yes - PULMONARY Hx Bronchitis: Yes Hx Pneumonia: Yes - NEUROLOGICAL Hx Neurological Disorder: No - HEENT Hx Deafness: Yes - RENAL Hx Chronic Kidney Disease: No - ENDOCRINE/METABOLIC Hx Endocrine Disorders: No - HEMATOLOGICAL/ONCOLOGICAL Hx Cancer: Yes (Right lung) Hx Human Immunodeficiency Virus (HIV): No - INTEGUMENTARY Hx Dermatological Problems: No - MUSCULOSKELETAL/RHEUMATOLOGICAL Hx Musculoskeletal Disorders: No - GASTROINTESTINAL Hx Gastrointestinal Disorders: No - GENITOURINARY/GYNECOLOGICAL Hx Prostate Problems: Yes Hx Urinary Tract Infection: Yes - PSYCHIATRIC Hx Anxiety: Yes - SURGICAL HISTORY Hx Surgeries: No - ANESTHESIA Hx Anesthesia: No Meds Home Medications: Home Medication List Medication Instructions Recorded Confirmed Type Megestrol Acetate [Megace] 400 mg PO BID #60 cup 09/22/17 Rx Prednisone 10 mg PO DAILY #30 tab.ds.pk 09/22/17 Rx Sulfamethoxazole/Trimethoprim 1 tab PO Q12 #14 tab 03/22/18 Rx [Bactrim DS 800 mg-160 mg] Vitamin B Complex [Super B-50 1 cap PO DAILY #30 capsule 09/22/17 Rx Complex] Allergies/Adverse Reactions: Allergies Allergy/AdvReac Type Severity Reaction Status Date / Time No Known Allergies Allergy Verified 05/11/17 12:09 - Medications Medications: Current Medications Albuterol/Ipratropium (Duoneb 3 Mg/0.5 Mg (3 Ml) Ud) 3 ml INH RQ4 PRN PRN Reason: Shortness of Breath Last Admin: 09/22/17 10:18 Dose: 3 ml Alendronate Sodium (Fosamax) 70 mg PO MO [facility] Amlodipine Besylate (Norvasc) 5 mg PO DAILY [facility] Last Admin: 09/22/17 09:40 Dose: 5 mg Calcium Carbonate (Oscal) 500 mg PO QPM [facility] Last Admin: 09/21/17 17:24 Dose: 500 mg Docusate Sodium (Colace) 100 mg PO BID PRN PRN Reason: Constipation Last Admin: 09/22/17 09:41 Dose: 100 mg Enoxaparin Sodium (Lovenox) 40 mg SC DAILY [facility] PRN Reason: Protocol Last Admin: 09/22/17 09:40 Dose: 40 mg Ceftriaxone Sodium 1 gm/ (Dextrose) 100 mls @ 100 mls/hr IVPB DAILY [facility] PRN Reason: Protocol Last Admin: 09/22/17 09:38 Dose: 100 mls/hr Lidocaine (Lidoderm) 1 ea TD DAILY [facility] Last Admin: 09/22/17 09:41 Dose: Not Given Lisinopril (Zestril) 5 mg PO DAILY [facility] Last Admin: 09/22/17 09:41 Dose: 5 mg Megestrol Acetate (Megace) 400 mg PO BID [facility] Last Admin: 09/22/17 09:39 Dose: 400 mg Methylprednisolone (Solu-Medrol) 30 mg IVP DAILY [facility] Last Admin: 09/22/17 09:40 Dose: 30 mg Multivitamins/Minerals (Therapeutic-M Tab) 1 tab PO DAILY [facility] Last Admin: 09/22/17 09:39 Dose: 1 tab Pantoprazole Sodium (Protonix Ec Tab) 40 mg PO DAILY [facility] Last Admin: 09/22/17 09:39 Dose: 40 mg Fluticasone/Salmeterol (Advair Diskus 250/50) 1 puff IH Q12H [facility] Last Admin: 09/22/17 05:15 Dose: 1 puff Tamsulosin HCl (Flomax) 0.8 mg PO HS [facility] Last Admin: 09/21/17 22:00 Dose: 0.8 mg Physical Exam - Additional Findings Additional findings: Physical exam shows a chronically ill-appearing, debilitated male who is very hard of hearing. The voice is hoarse. Pharynx is pink and the mucous membranes are dry. Nasal passages are patent bilaterally without bleeding or accident. The neck is supple and trachea is midline. There is no visible neck vein distention. No carotid bruit. There is asymmetry of the thorax with decreased volume on the right. Dullness to percussion is noted in the right upper lung field. Bronchial breath sounds are noted over the right mid and upper hemithorax with coarse rales in the same area. Gout expiratory wheezes are faintly heard bilaterally. Occasional sonorous rhonchi heard in the lower lobes. Heart sounds are distant with a regular rhythm. The abdomen is soft and nontender with normal bowel sounds. No dependent edema of the ankles. No cyanosis. Peripheral pulses are markedly diminished bilaterally. Results - Vital Signs Recent Vital Signs: Last Vital Signs Temp 97.9 F 09/22/17 12:00 Pulse 87 09/22/17 12:00 Resp 20 09/22/17 12:00 BP 107/63 09/22/17 12:00 Pulse Ox 95 09/22/17 12:00 - Labs Result Diagrams: 09/21/17 04:25 09/21/17 04:25 Assessment & Plan (1) COPD exacerbation Status: Acute Priority: High (2) Confusion Status: Acute Priority: High (3) UTI (urinary tract infection) Status: Acute Priority: High (4) Lung cancer Status: Chronic Priority: High (5) Pulmonary fibrosis Status: Chronic Priority: High (6) Atrial fibrillation, transient Status: Inactive Priority: High - Assessment and Plan (Free Text) Plan: The patient appears to have responded well to current medical regimen. Agree with plan for discharge to home and continuation of all his usual maintenance medications. Will follow up post discharge. - Date & Time Date: 09/22/17 Time: 12:35
--- NOTE | 2017-09-22 12:43 | CP.PCM.DIS ---
Provider - Provider Date of Admission: 09/20/17 15:49 Attending physician: Mario Perez MD Primary care physician: Dr. Lomax Consults: pulmonary consult Time Spent in preparation of Discharge (in minutes): 15 Hospital Course - Lab Results Lab Results: Micro Results 09/20/17 14:00 Blood-Venous Blood Culture - Preliminary NO GROWTH AFTER 24 HOURS 09/20/17 14:15 Blood-Venous Blood Culture - Preliminary NO GROWTH AFTER 24 HOURS 09/20/17 12:46 Urine,Clean Catch Urine Culture - Final 50-100,000 CFU/ML. MULTIPLE SPECIES. SUGGEST REPEAT SPECIMEN. Most Recent Lab Values WBC 9.9 K/uL (4.8-10.8) 09/21/17 04:25 RBC 3.46 Mil/uL (4.40-5.90) L 09/21/17 04:25 Hgb 11.1 g/dL (12.0-18.0) L 09/21/17 04:25 Hct 33.6 % (35.0-51.0) L 09/21/17 04:25 MCV 97.2 fl (80.0-94.0) H 09/21/17 04:25 MCH 32.1 pg (27.0-31.0) H 09/21/17 04:25 MCHC 33.0 g/dL (33.0-37.0) 09/21/17 04:25 RDW 15.7 % (11.5-14.5) H 09/21/17 04:25 Plt Count 163 K/uL (130-400) 09/21/17 04:25 MPV 7.4 fl (7.2-11.7) 09/21/17 04:25 Neut % (Auto) 92.3 % (50.0-75.0) H 09/21/17 04:25 Lymph % (Auto) 3.4 % (20.0-40.0) L 09/21/17 04:25 [place] % (Auto) 3.2 % (0.0-10.0) 09/21/17 04:25 Eos % (Auto) 0.1 % (0.0-4.0) 09/21/17 04:25 Baso % (Auto) 1.0 % (0.0-2.0) 09/21/17 04:25 Neut # (Auto) 9.2 K/uL (1.8-7.0) H 09/21/17 04:25 Lymph # (Auto) 0.3 K/uL (1.0-4.3) L 09/21/17 04:25 [place] # (Auto) 0.3 K/uL (0.0-0.8) 09/21/17 04:25 Eos # (Auto) 0.0 K/uL (0.0-0.7) 09/21/17 04:25 Baso # (Auto) 0.1 K/uL (0.0-0.2) 09/21/17 04:25 Total Counted Cancelled 09/21/17 04:25 Neutrophils % (Manual) 87 % (42-75) H 09/20/17 14:20 Band Neutrophils % 5 % (0-2) H 09/20/17 14:20 Lymphocytes % (Manual) 4 % (20-50) L 09/20/17 14:20 Reactive Lymphs % Cancelled 09/21/17 04:25 Monocytes % (Manual) 3 % (0-10) 09/20/17 14:20 Eosinophils % (Manual) Cancelled 09/21/17 04:25 Basophils % (Manual) Cancelled 09/21/17 04:25 Metamyelocytes % 1 % (0-0) H 09/20/17 14:20 Myelocytes % Cancelled 09/21/17 04:25 Promyelocytes % Cancelled 09/21/17 04:25 Blast Cells % Cancelled 09/21/17 04:25 Plasma Cell % (Manual) Cancelled 09/21/17 04:25 Nucleated RBC % Cancelled 09/21/17 04:25 Hypersegmented Polys Cancelled 09/21/17 04:25 Smudge Cells Cancelled 09/21/17 04:25 Toxic Granulation Present 09/20/17 14:20 Dohle Bodies Cancelled 09/21/17 04:25 Agustín Rods Cancelled 09/21/17 04:25 Platelet Estimate Normal (NORMAL) 09/20/17 14:20 Plt Clumps, EDTA Cancelled 09/21/17 04:25 Large Platelets Cancelled 09/21/17 04:25 Giant Platelets Cancelled 09/21/17 04:25 RBC Morphology Cancelled 09/21/17 04:25 Polychromasia Cancelled 09/21/17 04:25 Hypochromasia (manual) Cancelled 09/21/17 04:25 Poikilocytosis (manual Cancelled 09/21/17 04:25 Basophilic Stippling Cancelled 09/21/17 04:25 Anisocytosis (manual) Slight 09/20/17 14:20 Microcytosis (manual) Cancelled 09/21/17 04:25 Macrocytosis (manual) Slight 09/20/17 14:20 Spherocytes Cancelled 09/21/17 04:25 Sickle Cells Cancelled 09/21/17 04:25 Target Cells Cancelled 09/21/17 04:25 Tear Drop Cells Cancelled 09/21/17 04:25 Ovalocytes Slight 09/20/17 14:20 Stomatocytes Cancelled 09/21/17 04:25 Helmet Cells Cancelled 09/21/17 04:25 Harris-Combes Bodies Cancelled 09/21/17 04:25 [place] Cells Cancelled 09/21/17 04:25 Acanthocytes (Spur) Cancelled 09/21/17 04:25 Rouleaux Cancelled 09/21/17 04:25 Schistocytes Cancelled 09/21/17 04:25 PT 13.1 Seconds (9.8-13.1) 09/20/17 14:20 INR 1.2 (0.9-1.2) 09/20/17 14:20 APTT 26.6 Seconds (25.6-37.1) 09/20/17 14:20 pCO2 31 mm/Hg (35-45) L 09/20/17 12:20 pO2 75 mm/Hg (80-100) L 09/20/17 12:20 HCO3 27.1 mmol/L (21-28) 09/20/17 12:20 ABG pH 7.52 (7.35-7.45) H 09/20/17 12:20 ABG Total CO2 26.3 mmol/L (22-28) 09/20/17 12:20 ABG O2 Saturation 99.4 % (95-98) H 09/20/17 12:20 ABG Base Excess 2.9 mmol/L (-2.0-3.0) 09/20/17 12:20 Fei Test Yes 09/20/17 12:20 ABG Potassium 4.0 mmol/L (3.6-5.2) 09/20/17 12:20 A-a O2 Difference 36.0 mm/Hg 09/20/17 12:20 Sodium 139.0 mmol/L (132-148) 09/20/17 12:20 Chloride 112.0 mmol/L (98-107) H 09/20/17 12:20 Glucose 97 mg/dL (75-110) 09/20/17 12:20 Lactate 1.2 mmol/L (0.7-2.1) 09/20/17 12:20 Vent Mode Ra 09/20/17 12:20 FiO2 21.0 % 09/20/17 12:20 Sodium 145 mmol/l (132-148) 09/21/17 04:25 Potassium 3.8 MMOL/L (3.6-5.0) 09/21/17 04:25 Chloride 108 mmol/L (98-107) H 09/21/17 04:25 Carbon Dioxide 28 mmol/L (22-30) 09/21/17 04:25 Anion Gap 13 (10-20) 09/21/17 04:25 BUN 31 mg/dl (9-20) H 09/21/17 04:25 Creatinine 0.7 mg/dl (0.8-1.5) L 09/21/17 04:25 Est GFR ( Amer) > 60 09/21/17 04:25 Est GFR (Non-Af Amer) > 60 09/21/17 04:25 POC Glucose (mg/dL) 106 mg/dL (65-110) 09/20/17 12:03 Random Glucose 112 mg/dL (75-110) H 09/21/17 04:25 Calcium 8.0 mg/dL (8.4-10.2) L 09/21/17 04:25 Total Bilirubin 0.5 mg/dl (0.2-1.3) 09/20/17 14:20 AST 39 U/L (17-59) 09/20/17 14:20 ALT 136 U/L (21-72) H D 09/20/17 14:20 Alkaline Phosphatase 52 U/L (38-126) 09/20/17 14:20 Troponin I 0.0410 ng/mL (0.00-0.120) 09/20/17 14:20 NT-Pro-B Natriuret Pep 1930 pg/ml (0-900) H 09/20/17 14:20 Total Protein 5.7 G/DL (6.3-8.2) L 09/20/17 14:20 Albumin 2.9 g/dL (3.5-5.0) L 09/20/17 14:20 Globulin 2.8 gm/dL (2.2-3.9) 09/20/17 14:20 Albumin/Globulin Ratio 1.0 (1.0-2.1) 09/20/17 14:20 Arterial Blood Potassium 4.0 mmol/L (3.6-5.2) 09/20/17 12:20 Urine Color Mi (YELLOW) 09/20/17 12:46 Urine Clarity Cloudy (Clear) 09/20/17 12:46 Urine pH 5.0 (5.0-8.0) 09/20/17 12:46 Ur Specific Pound 1.020 (1.003-1.030) 09/20/17 12:46 Urine Protein Negative mg/dL (NEGATIVE) 09/20/17 12:46 Urine Glucose (UA) Neg mg/dL (Normal) 09/20/17 12:46 Urine Ketones Negative mg/dL (NEGATIVE) 09/20/17 12:46 Urine Blood Small (NEGATIVE) 09/20/17 12:46 Urine Nitrate Negative (NEGATIVE) 09/20/17 12:46 Urine Bilirubin Negative (NEGATIVE) 09/20/17 12:46 Urine Urobilinogen 0.2-1.0 mg/dL (0.2-1.0) 09/20/17 12:46 Ur Leukocyte Esterase Large Aman/uL (Negative) 09/20/17 12:46 Urine RBC (Auto) 16 /hpf (0-3) H 09/20/17 12:46 Urine Microscopic WBC 33 /hpf (0-5) H 09/20/17 12:46 Ur Squamous Epith Cells 1 /hpf (0-5) 09/20/17 12:46 Calcium Oxalate Crystal Rare /hpf (<OCC) 09/20/17 12:46 Urine Bacteria Many (<OCC) H 09/20/17 12:46 Hyaline Casts 0-2 /hpf (0-2) 09/20/17 12:46 Urine Yeast (Budding) Rare /hpf (NEGATIVE) H 09/20/17 12:46 Influenza Typ A,B (EIA) Negative for flu a/b (NEGATIVE) 09/20/17 12:46 - Hospital Course Hospital Course: 82 yo male with history of COPD, HTN, CAD, BPH, non-small cell lung cancer of the right lung (post resection ,radiation and chemo) brought in from [facility] because of SOB, lethargy and generalized weakness since 4 days ago. Patient was recently admitted a month ago for COPD exacerbation and sent to [facility] because of generalized weakness and deconditioning for PT.He is a chronically ill gentleman. His UA showed bacteria and WBC with LE.He was admitted for UTI and started on rocephin IV.At present he is hemodynamically stable, afebrile with no WBC, in no respiratory distress . He is frail and chronically ill. Will discharge patient home with partner. Home health services to be initiated upon discharge. He also has private home health care services. Patient has guarded prognosis. Follow up with PMD Dr. Lomax Will d/c on Bactrim PO for 7 days for UTI 1. UTI UA positive for bacteria, LE and WBC urine culture: grew multiple species < [id number] colonies blood culture with no growth Was Rocephin 1gm IV daily Will d/c on bactrim PO 2. COPD Duoneb q 4hrs prn for wheezing/SOB Advair 250/50 1 puff q 12hrs Prednisone 10mg PO daily Pulmonary consult appreciated 3. HTN BP stable continue Amlodipine and Lisinopril 4. BPH on flomax 5. History Non small cell lung cancer s/p resection , chemo and radiation Follows up at [facility] 6.Frailty BMI 21 on Megace for appetite Discharge Exam - Head Exam Head Exam: ATRAUMATIC, NORMOCEPHALIC Additional comments: chronically ill - Eye Exam Eye Exam: Normal appearance, PERRL Pupil Exam: NORMAL ACCOMODATION - ENT Exam ENT Exam: Mucous Membranes Moist, Normal Exam - Neck Exam Neck exam: Normal Inspection - Respiratory Exam Respiratory Exam: Clear to PA & Lateral, Prolonged Expiratory Phase. absent: Rhonchi, Wheezes - Cardiovascular Exam Cardiovascular Exam: Irregular Rhythm. absent: JVD - GI/Abdominal Exam GI & Abdominal Exam: Normal Bowel Sounds, Soft, Tenderness (to lower abdomen with palpation) - Rectal Exam Rectal Exam: Deferred - Extremities Exam Extremities exam: normal capillary refill, normal inspection, pedal pulses present - Neurological Exam Neurological exam: Alert, CN II-XII Intact, Oriented x3 - Psychiatric Exam Psychiatric exam: Flat Affect - Skin Skin Exam: Dry, Warm Discharge Plan - Discharge Medications Prescriptions: Megestrol Acetate [Megace] 400 mg PO BID #60 cup Prednisone 10 mg PO DAILY #30 tab.ds.pk Sulfamethoxazole/Trimethoprim [Bactrim DS 800 mg-160 mg] 1 tab PO Q12 #14 tab Vitamin B Complex [Super B-50 Complex] 1 cap PO DAILY #30 capsule - Follow Up Plan Condition: GUARDED Disposition: HOME/ ROUTINE Patient education suggested?: Yes Instructions: Urinary Tract Infection, Adult (DC), Exacerbation of COPD (DC) Additional Instructions: follow up with in 1 week Referrals: Walter Lomax MD [Staff Provider] -
[2017-09-22 16:24] VITALS: BP 115/71; PULSE 85; O2SAT 98
[2017-09-26] MEDS ORDERED: ALENDRONATE 70 MG TAB PO SCH (17:01)
== END 2017-09-22 16:59 | disposition home health service (06) | DRG 690 ==
LOC: H.ER 11:42 → H.ERHOLD 15:49 → H.TEL 17:34
DX: N39.0 Urinary tract infection, site not specified (principal); J44.1 Chronic obstructive pulmonary disease with (acute) exacerbation; I11.0 Hypertensive heart disease with heart failure; I50.9 Heart failure, unspecified; R09.02 Hypoxemia; J84.10 Pulmonary fibrosis, unspecified; I25.10 Atherosclerotic heart disease of native coronary artery without angina pectoris; R54 Age-related physical debility; G89.29 Other chronic pain; M54.5 Low back pain; N40.0 Benign prostatic hyperplasia without lower urinary tract symptoms; H91.90 Unspecified hearing loss, unspecified ear; F41.9 Anxiety disorder, unspecified; Z85.118 Personal history of other malignant neoplasm of bronchus and lung; Z92.21 Personal history of antineoplastic chemotherapy; Z92.3 Personal history of irradiation; Z87.01 Personal history of pneumonia (recurrent); Z87.891 Personal history of nicotine dependence; Z87.440 Personal history of urinary (tract) infections; Z79.83 Long term (current) use of bisphosphonates

== ENCOUNTER 2017-09-29 07:40 | Emergency (ER) | payer BC, MEDICARE ==
[2017-09-29] MEDS ORDERED: Sodium Chloride 0.9% 1,000 ML IV STA (07:59)
[2017-09-29] MEDS ORDERED: Albuterol-Ipratrop 3 mg / 0.5 (3 ml) UD IH STA (07:59)
--- NOTE | 2017-09-29 08:05 | ED PDOC ---
HPI: SOB/CHF/COPD Time Seen by Provider: 09/29/17 07:47 Chief Complaint (Nursing): Shortness Of Breath Chief Complaint (Provider): Shortness Of Breath History Per: Patient History/Exam Limitations: no limitations Onset/Duration Of Symptoms: Days (x2) Current Symptoms Are (Timing): Still Present Additional Complaint(s): 82 y/o male with a past medical history of COPD and lung CA, brought to ED by family members due to shortness of breath and decreased oral intake x2 days. Patient denies cough, chest pain, abdominal pain, nausea, vomiting, and diarrhea. PMD: Walter Lomax Past Medical History Reviewed: Historical Data, Nursing Documentation, Vital Signs Vital Signs: Last Vital Signs Temp 98.8 F 09/29/17 07:51 Pulse 91 H 09/29/17 08:47 Resp 24 09/29/17 08:47 BP 108/72 09/29/17 09:06 Pulse Ox 95 09/29/17 08:53 - Medical History PMH: Anxiety, Bronchitis, COPD, Emphysema, HTN, Malignancy (lung (gone now)), Pneumonia Denies: HIV, Chronic Kidney Disease - Surgical History Surgical History: No Surg Hx - Family History Family History: States: Unknown Family Hx - Social History Ex-Smoker (has not smoked in the last 12 months): Yes Alcohol: None Drugs: Denies - Home Medications Home Medications: Ambulatory Orders Medication Instructions Recorded Fluticasone/Salmeterol 250/50 1 puff IH Q12H 08/15/17 [Advair Diskus 250/50] Tamsulosin [Flomax] 0.8 mg PO HS 08/15/17 Docusate [Colace] 100 mg PO BID cap 08/18/17 Ipratropium 0.02% [Atrovent] 0.5 mg IH RQID neb 08/18/17 Multimineral/Multivitamin 1 tab PO DAILY tab 08/18/17 [Therapeutic-M Tab] amLODIPine [Norvasc] 5 mg PO DAILY tab 08/18/17 Lisinopril [Zestril] 5 mg PO DAILY tab 08/19/17 Acetaminophen [Tylenol 325mg tab] 650 mg PO Q4 PRN 09/20/17 Alendronate [Fosamax] 70 mg PO MO 09/20/17 Calcium Carbonate [Calcium] 500 mg PO QPM 09/20/17 Famotidine [Pepcid] 20 mg PO BID 09/20/17 Lidocaine 5% [Lidoderm] 1 patch TD DAILY 09/20/17 Mag Hydrox/Aluminum Hyd/Simeth 30 ml PO Q4 PRN 09/20/17 [Maalox Advanced Suspension] Magnesium Hydroxide [Milk Of 30 ml PO DAILY PRN 09/20/17 Magnesia] Megestrol Acetate [Megace] 400 mg PO BID #60 cup 09/22/17 Prednisone 10 mg PO DAILY #30 tab.ds.pk 09/22/17 Sulfamethoxazole/Trimethoprim 1 tab PO Q12 #14 tab 09/22/17 [Bactrim DS 800 mg-160 mg] Vitamin B Complex [Super B-50 1 cap PO DAILY #30 capsule 09/22/17 Complex] Lactulose 10 gm PO DAILY #1 solution 09/29/17 - Allergies Allergies/Adverse Reactions: Allergies Allergy/AdvReac Type Severity Reaction Status Date / Time No Known Allergies Allergy Verified 09/29/17 07:51 Review of Systems ROS Statement: Except As Marked, All Systems Reviewed And Found Negative Cardiovascular: Negative for: Chest Pain Respiratory: Positive for: Shortness of Breath. Negative for: Cough Gastrointestinal: Negative for: Nausea, Vomiting, Abdominal Pain, Diarrhea Physical Exam - Reviewed Nursing Documentation Reviewed: Yes Vital Signs Reviewed: Yes - Physical Exam Appears: Positive for: Non-toxic, No Acute Distress Head Exam: Positive for: ATRAUMATIC, NORMAL INSPECTION, NORMOCEPHALIC Skin: Positive for: Normal Color, Warm, Dry. Negative for: Rash Eye Exam: Positive for: EOMI, Normal appearance, PERRL ENT: Positive for: Other (mucous membranes dry) Neck: Positive for: Normal, Painless ROM, Supple Cardiovascular/Chest: Positive for: Regular Rate, Rhythm. Negative for: Murmur Respiratory: Positive for: Rhonchi (scattered). Negative for: Wheezing, Respiratory Distress Gastrointestinal/Abdominal: Positive for: Normal Exam, Bowel Sounds, Soft. Negative for: Tenderness Back: Positive for: Normal Inspection. Negative for: L CVA Tenderness, R CVA Tenderness, Vertebral Tenderness Extremity: Positive for: Normal ROM. Negative for: Pedal Edema, Deformity, Swelling Neurologic/Psych: Positive for: Alert, Oriented. Negative for: Motor/Sensory Deficits - Laboratory Results Result Diagrams: 09/29/17 08:25 09/29/17 08:25 - ECG O2 Sat by Pulse Oximetry: 95 (RA) Pulse Ox Interpretation: Normal Medical Decision Making Medical Decision Making: Time: 07:59 Initial Plan: --EKG --CMP --CBC --CXR --Duoneb 3ml INH --Sodium Chloride 0.9% 100mls/hr --Reevaluation Scribe Attestation: Documented by Yann Fisher, acting as a scribe for Quinten Stein MD. Provider Scribe Attestation: All medical record entries made by the Scribe were at my direction and personally dictated by me. I have reviewed the chart and agree that the record accurately reflects my personal performance of the history, physical exam, medical decision making, and the department course for this patient. I have also personally directed, reviewed, and agree with the discharge instructions and disposition. Disposition - Clinical Impression Clinical Impression: Lung cancer, COPD (chronic obstructive pulmonary disease) - Disposition Referrals: Walter Lomax MD [Family Provider] - Disposition Time: 13:45 Condition: FAIR Prescriptions: Lactulose 10 gm PO DAILY #1 solution Instructions: Lung Cancer, COPD Including Emphysema (DC) Forms: [employer] (Guinean)
--- NOTE | 2017-09-29 08:45 | RAD ---
HISTORY: cough COMPARISON: 09/20/2017 FINDINGS: LUNGS: Examination grossly limited due to obscuring of the upper lung by the patient's mandible and due to steep oblique positioning. No infiltrate identified. PLEURA: No significant pleural effusion identified, no pneumothorax apparent. CARDIOVASCULAR: Right central venous infusion port. OSSEOUS STRUCTURES: No significant abnormalities. VISUALIZED UPPER ABDOMEN: Normal. OTHER FINDINGS: None. IMPRESSION: No active disease. Limited examination.
[2017-09-29 09:00] LABS: BASO % 0.4 % (0.0-2.0); EOS % 0.3 % (0.0-4.0); HEMOGLOBIN 13.9 g/dL (12.0-18.0); LYMPH # 0.9 K/uL (1.0-4.3); LYMPH % 9.1 % (20.0-40.0); MEAN CELL VOLUME 97.1 fl (80.0-94.0); MEAN CORPUSCULAR HEMOGLOBIN 32.7 pg (27.0-31.0); MEAN CORPUSCULAR HGB CONC 33.7 g/dL (33.0-37.0); MEAN PLATELET VOLUME 7.1 fl (7.2-11.7); MONO # 0.3 K/uL (0.0-0.8); NEUT # 8.9 K/uL (1.8-7.0); NEUT % 87.2 % (50.0-75.0); NRBC % 0.2 % (0.0-0.0); PLATELET COUNT 256 K/uL (130-400); RBC 4.25 Mil/uL (4.40-5.90); RED CELL DISTRIBUTION WIDTH 15.9 % (11.5-14.5); WHITE BLOOD COUNT 10.2 K/uL (4.8-10.8)
[2017-09-29 09:02] LABS: ALB/GLOB RATIO 1.1 (1.0-2.1); ALBUMIN 3.3 g/dL (3.5-5.0); ALT/SGPT 251 U/L (21-72); AST/SGOT 89 U/L (17-59); BLOOD UREA NITROGEN 27 mg/dl (9-20); GFR AFRICAN-AMERICAN > 60; GFR NON-AFRICAN AMERICAN > 60
[2017-09-29 13:42] LABS: ANISOCYTOSIS SLIGHT; BANDS 3 % (0-2); LYMPHOCYTE 13 % (20-50); MONOCYTE 5 % (0-10); NEUTROPHIL 79 % (42-75); PLATELET ESTIMATE NORMAL (NORMAL); TOTAL CELLS COUNTED 100
--- NOTE | 2017-09-29 13:44 | US ---
HISTORY: r/o liver mets COMPARISON: CT abdomen and pelvis from 08/16/2017. TECHNIQUE: Grayscale imaging was performed. FINDINGS: LIVER: Measures 13.0 cm in length. There is diffuse increased echogenicity of the liver parenchyma. The left lobe of liver is obscured by excessive bowel gas. No mass. No intrahepatic bile duct dilatation. GALLBLADDER: The gallbladder is filled with multiple gallstones. Wall thickening or pericholecystic fluid. The sonographic Taylor's sign is negative. COMMON BILE DUCT: Measures 3.1 mm. No stones. No dilatation. PANCREAS: Unremarkable as visualized. No mass. No ductal dilatation. RIGHT KIDNEY: Measures 10.8 cm in length. Normal echogenicity. No calculus, mass, or hydronephrosis. AORTA: No aneurysmal dilatation. IVC: Unremarkable. OTHER FINDINGS: None . IMPRESSION: The left lobe of liver is obscured by excessive bowel gas, allowing for, diffuse Diffuse increased echogenicity in the liver may reflect hepatic steatosis however parenchymal infectious/ inflammatory etiologies cannot be entirely excluded. Clinical and laboratory correlation is advised. Please note evaluation of the liver is limited and if there is a clinical concern for hepatic metastasis, CT scan/MRI of the abdomen with liver protocol without and with intravenous contrast is recommended for further characterization. Cholelithiasis.
[2017-09-29 13:50] VITALS: RESP 18; O2SAT 99
[2017-09-29 14:40] VITALS: BP 109/68; PULSE 89; TEMP 98
--- NOTE | 2017-09-29 18:29 | CARD ---
APPROVED REPORT EKG Measurement Heart [id number] <Conclusion> Normal sinus rhythm Normal ECG
== END 2017-09-29 14:43 | disposition home or self-care (01) ==
LOC: H.ER 07:40
DX: C34.90 Malignant neoplasm of unspecified part of unspecified bronchus or lung (principal); J44.9 Chronic obstructive pulmonary disease, unspecified; F41.9 Anxiety disorder, unspecified; I10 Essential (primary) hypertension
CPT/HCPCS: 71045; 76705; 80053; 85025; 93005; 94640; 99285; J7040